=== PATIENT | female | born 1945 | race American Indian/Alaskan Native ===

== ENCOUNTER 2017-01-25 11:08 | Inpatient (IN) | payer MEDICARE, OTHER ==
[2017-01-25] MEDS ORDERED: Morphine 4 mg/ml ISec IVP STA (11:52)
[2017-01-25] MEDS ORDERED: Sodium Chloride 0.9% 1,000 ML IV STA (11:53)
[2017-01-25] MEDS ORDERED: Iohexol 240 (50 ml) ONE (12:07)
--- NOTE | 2017-01-25 12:11 | ED PDOC ---
Arrival/HPI - General Chief Complaint: Abdominal Pain Time Seen by Provider: 01/25/17 11:45 Historian: Patient - History of Present Illness Narrative History of Present Illness (Text): 01/25/17 11:46 A 71 year old female, whose past medical history includes hypertension, hyperlipidemia, GERD, and borderline diabetes, who presents to the emergency department complaining of generalized abdominal pain since yesterday. Patient notes associated decrease appetite. She says 2 days ago around 1700 she took a laxative to clean out our stomach and that evening she has non bloody, water diarrhea. She denies any nausea, vomiting, urinary symptoms, back pain, fever, chest pain, shortness of breath, cough or any other complaints at this time. PMD: Dr. Tran Time/Duration: 24 hours Symptom Onset: Sudden Symptom Course: Unchanged Quality: Other Activities at Onset: Rest Context: Home Associated Symptoms (Text): decrease appetite Past Medical History - Provider Review Nursing Documentation Reviewed: Yes - Infectious Disease Hx of Infectious Diseases: None - Cardiac Hx Hypertension: Yes - Psychiatric Hx Substance Use: No Family/Social History - Physician Review Nursing Documentation Reviewed: Yes Family/Social History: Unknown Family HX Smoking Status: Never Smoked Hx Alcohol Use: No Hx Substance Use: No Allergies/Home Meds Allergies/Adverse Reactions: Allergies No Known Allergies Allergy (Verified 01/25/17 11:32) Home Medications: Home Meds Medication Instructions Recorded Confirmed Olmesartan/Hydrochlorothiazide 1 tab PO DAILY 01/25/17 01/25/17 [Benicar Hct 40-12.5 mg Tablet] Omeprazole 20 mg PO BID 01/25/17 01/25/17 Potassium Chloride [Klor-Con 10] 10 meq PO DAILY 01/25/17 01/25/17 Simvastatin [Zocor] 20 mg PO DAILY 01/25/17 01/25/17 Review of Systems - Physician Review All systems were reviewed & negative as marked: Yes - Review of Systems Constitutional: absent: Fevers Respiratory: absent: SOB, Cough Cardiovascular: absent: Chest Pain Gastrointestinal: Abdominal Pain, Diarrhea. absent: Nausea, Vomiting Genitourinary Female: absent: Dysuria, Urine Output Changes Musculoskeletal: absent: Back Pain Neurological: absent: Headache, Dizziness Endocrine: absent: Polyuria, Polydipsia Physical Exam Vital Signs Reviewed: Yes Vital Signs Temp Pulse Resp BP Pulse Ox 01/25/17 13:04 89 18 148/79 98 01/25/17 11:26 98.3 F 97 H 18 150/84 96 Temperature: Afebrile Blood Pressure: Normal Pulse: Regular Respiratory Rate: Normal Appearance: Positive for: Well-Appearing, Non-Toxic, Comfortable Pain Distress: None Mental Status: Positive for: Alert and Oriented X 3 - Systems Exam Head: Present: Atraumatic, Normocephalic Pupils: Present: PERRL Conjunctiva: Present: Normal Mouth: Present: Moist Mucous Membranes Pharnyx: Present: Normal. No: ERYTHEMA, EXUDATE Neck: Present: Normal Range of Motion Respiratory/Chest: Present: Clear to Auscultation, Good Air Exchange. No: Respiratory Distress, Accessory Muscle Use Cardiovascular: Present: Regular Rate and Rhythm, Normal S1, S2. No: Murmurs Abdomen: Present: Tenderness (diffuse tenderness with palpation), Normal Bowel Sounds. No: Distention, Peritoneal Signs, Rebound, Guarding Back: Present: Normal Inspection Upper Extremity: Present: Normal Inspection. No: Cyanosis, Edema Lower Extremity: Present: Normal Inspection. No: Edema Neurological: Present: GCS=15, CN II-XII Intact, Speech Normal Skin: Present: Warm, Dry, Normal Color. No: Rashes Psychiatric: Present: Alert, Oriented x 3, Normal Insight, Normal Concentration Medical Decision Making ED Course and Treatment: 01/25/17 11:46 Impression: A 71 year old female with diffuse abdominal pain associated with decrease appetite. On physical examination the patient has tenderness with palpation diffusely. Differential Diagnosis included but are not limited to: gastritis vs. colitis Plan: -- EKG -- Abdomen/Pelvis CT -- Labs -- Urinalysis -- Morphine, Pepcid, Zofran and IV Fluids -- Reassess and disposition - Lab Interpretations I have reviewed the lab results: Yes - Medication Orders Current Medication Orders: Discontinued Medications Famotidine (Pepcid) 20 mg IVP STAT STA Stop: 01/25/17 11:53 Last Admin: 01/25/17 12:24 Dose: 20 MG IVP Administration Document 01/25/17 12:24 EQ (Rec: 01/25/17 12:24 EQ [facility] [id number][place] Charges for Administration # of IVP Administrations 1 Sodium Chloride (Sodium Chloride 0.9%) 1,000 mls @ 500 mls/hr IV .Q2H STA Stop: 01/25/17 13:52 Last Admin: 01/25/17 12:25 Dose: 500 MLS/HR eMAR Start Stop Document 01/25/17 12:25 EQ (Rec: 01/25/17 12:25 EQ [facility] [id number] Intravenous Solution Start Date 01/25/17 Start Time 12:25 Potassium Chloride (Potassium Chloride 10 Meq/100 Ml) 100 mls @ 100 mls/hr IVPB Q2H STA Stop: 01/25/17 13:45 Last Admin: 01/25/17 13:00 Dose: 100 MLS/HR eMAR Start Stop Document 01/25/17 13:00 EQ (Rec: 01/25/17 13:25 EQ [facility] [id number][place] Intravenous Solution Start Date 01/25/17 Start Time 13:00 Piperacillin Sod/Tazobactam Sod (Zosyn 3.375 In Ns 100ml) 100 mls @ 200 mls/hr IVPB STAT STA PRN Reason: Protocol Stop: 01/25/17 15:22 Iohexol (Omnipaque 240 (50 Ml)) Confirm Administered Dose 50 ml .ROUTE .STK-MED ONE Stop: 01/25/17 12:08 Morphine Sulfate (Morphine) 4 mg IVP STAT STA Stop: 01/25/17 11:53 Last Admin: 01/25/17 12:24 Dose: 4 MG MAR Pain Assessment Document 01/25/17 12:24 EQ (Rec: 01/25/17 12:25 EQ [facility] [id number][place] Pain Reassessment Is this a pain reassessment? No Sleep Is patient sleeping during reassessment? Yes IVP Administration Document 01/25/17 12:24 EQ (Rec: 01/25/17 12:25 EQ [facility] [id number][place] Charges for Administration # of IVP Administrations 1 Ondansetron HCl (Zofran Inj) 4 mg IVP STAT STA Stop: 01/25/17 11:53 Last Admin: 01/25/17 12:24 Dose: 4 MG IVP Administration Document 01/25/17 12:24 EQ (Rec: 01/25/17 12:24 EQ [facility] [id number][place] Charges for Administration # of IVP Administrations 1 ED OBSERVATION Date of observation admission: 01/25/17 Time of observation admission: 11:46 - Observation admission statement Patient is being placed in observation because:: abdominal pain - Goals of Observation Goals of observation are:: pain management and obtain series of abdominal examinations - Progress Note Progress Note: EKG: Ordered, reviewed, and independently interpreted the EKG. Rate : 95 BPM Rhythm : NSR Interpretation : normal axis, normal intervals, flattened T waves in lead V3-V6. Comparison : No previous EKG for comparison. 01/25/17 13:53 On reevaluation, the patient notes mild improvement in pain. Pain still present despite pain medication. Patient states she does not want any additional pain medication at this time. 01/25/17 14:50 Abdomen/Pelvis CT: Creator : Sharad Farley MD COMPARISON: None. FINDINGS: LOWER THORAX: Unremarkable. LIVER: Unremarkable. No gross lesion or ductal dilatation. GALLBLADDER AND BILE DUCTS: Unremarkable. PANCREAS: Unremarkable. No gross lesion or ductal dilatation. SPLEEN: Unremarkable. ADRENALS: Unremarkable. No mass. KIDNEYS AND URETERS: Unremarkable. No hydronephrosis. No solid mass. VASCULATURE: Unremarkable. No aortic aneurysm. BOWEL: There is diverticulitis of the sigmoid colon with an adjacent diverticular abscess extending inferiorly. This is best seen on coronal image 57 and axial images 128 through 140. The diverticular abscess contains gas but no fluid. This measures 2.5 cm in diameter and 3.8 cm in height. The finding is also visualize stones sagittal image 120. APPENDIX: Normal appendix. PERITONEUM: Unremarkable. No free fluid. No free air. LYMPH NODES: Unremarkable. No enlarged lymph nodes. BLADDER: Unremarkable. REPRODUCTIVE: Multiple calcified fibroids are seen with a lobulated contour of the uterus BONES: No acute fracture. OTHER FINDINGS: None. IMPRESSION: Diverticulitis of the sigmoid colon with adjacent diverticular abscess 01/25/17 15:[address] result with diverticular abscess - will admit for iv antibiotics and GI with possible surgical eval. Discussed with Dr. Jacome for admission. - Scribe Statement The provider has reviewed the documentation as recorded by the Ganesh Frye Provider Scribe Attestation: All medical record entries made by the Scribe were at my direction and personally dictated by me. I have reviewed the chart and agree that the record accurately reflects my personal performance of the history, physical exam, medical decision making, and the department course for this patient. I have also personally directed, reviewed, and agree with the discharge instructions and disposition. Disposition/Present on Arrival - Present on Arrival Any Indicators Present on Arrival: No History of DVT/PE: No History of Uncontrolled Diabetes: No Urinary Catheter: No History of Decub. Ulcer: No History Surgical Site Infection Following: None - Disposition Have Diagnosis and Disposition been Completed?: Yes Diagnosis: Abscess of sigmoid colon due to diverticulitis Disposition: HOSPITALIZED Disposition Time: 14:55 Patient Plan: Admission Patient Problems: Current Active Problems Problem Status Diagnosed Abscess of sigmoid colon due to diverticulitis Acute Condition: FAIR
[2017-01-25 12:28] LABS: ADD MANUAL DIFF? NO
[2017-01-25 12:36] LABS: BASO # 0.02 K/mm3 (0.0-2.0); BASO % 0.1 % (0.0-3.0); EOS % 0.1 % (1.5-5.0); GRAN % 80.9 % (50.0-68.0); HEMATOCRIT 37.3 % (36.0-48.0); LYMPH # 1.7 (1.2-3.4); MEAN CELL VOLUME 80.9 fL (80.0-105.0); MEAN CORPUSCULAR HEMOGLOBIN 26.9 pg (25.0-35.0); MEAN CORPUSCULAR HGB CONC 33.2 g/dl (31.0-37.0); MEAN PLATELET VOLUME 9.8 fl (7.0-11.0); MONO # 1.5 (0.1-0.6); MONO % 8.9 % (1.0-6.0); PLATELET COUNT 319 10^3/uL (120.0-450.0); RED CELL DISTRIBUTION WIDTH 17.4 % (11.5-14.5); WHITE BLOOD COUNT 17.3 10^3/ul (4.5-11.0)
[2017-01-25 12:43] LABS: ALB/GLOB RATIO 0.9 (1.1-1.8); ALKALINE PHOSPHATASE 92 U/L (38-133); ALT/SGPT 20 U/L (7-56); AMYLASE 89 U/L (35-125); AST/SGOT 24 U/L (15-39); BILIRUBIN,TOTAL 1.4 mg/dL (0.2-1.3); BLOOD UREA NITROGEN 11 mg/dL (7-21); CALCIUM 9.2 mg/dL (8.4-10.5); CARBON DIOXIDE 35 mmol/L (21-33); CHLORIDE 94 mmol/L (98-107); GFR AFRICAN-AMERICAN > 60; GLUCOSE,RANDOM 128 mg/dL (70-110); LIPASE 15 U/L (23-300); SODIUM 139 mmol/L (132-148); TOTAL PROTEIN 8.2 g/dL (5.8-8.3)
[2017-01-25] MEDS ORDERED: Potassium Chloride 10 mEq 100 ML IVPB STA (12:46)
[2017-01-25 12:53] LABS: TROPONIN I 0.02 ng/mL
[2017-01-25 12:56] LABS: INR 1.09 (0.93-1.08)
[2017-01-25] MEDS ORDERED: Iohexol 350 MG/100 ML VIAL ONE (13:19)
[2017-01-25 14:02] LABS: PH,URINE 6.5 (4.7-8.0); URINE BILIRUBIN NEGATIVE (NEGATIVE); URINE BLOOD MODERATE (NEGATIVE); URINE GLUCOSE (UA) NEGATIVE (NEGATIVE); URINE KETONE NEGATIVE (NEGATIVE); URINE LEUKOCYTE ESTERASE LARGE Leu/uL (NEGATIVE); URINE PROTEIN 30 mg/dL (<30 mg/dL); URINE UROBILINOGEN 0.2 E.U./dL (<1 E.U./dL)
[2017-01-25 14:04] LABS: URINE APPEARANCE SL CLOUDY (CLEAR); URINE COLOR YELLOW (YELLOW)
[2017-01-25 14:05] LABS: URINE BACTERIA FEW (NEG); URINE WBC TNTC /hpf (0-6)
[2017-01-25] MEDS ORDERED: cefTRIAXone 1 gm 100 ML IV STA (14:08)
--- NOTE | 2017-01-25 14:47 | CT ---
PROCEDURE: CT Abdomen and Pelvis with contrast HISTORY: diffuse abd pain COMPARISON: None. TECHNIQUE: Contrast dose: 100 cc of Omni 350 Radiation dose: Total exam DLP = 1232 mGy-cm. This CT exam was performed using one or more of the following dose reduction techniques: Automated exposure control, adjustment of the mA and/or kV according to patient size, and/or use of iterative reconstruction technique. FINDINGS: LOWER THORAX: Unremarkable. LIVER: Unremarkable. No gross lesion or ductal dilatation. GALLBLADDER AND BILE DUCTS: Unremarkable. PANCREAS: Unremarkable. No gross lesion or ductal dilatation. SPLEEN: Unremarkable. ADRENALS: Unremarkable. No mass. KIDNEYS AND URETERS: Unremarkable. No hydronephrosis. No solid mass. VASCULATURE: Unremarkable. No aortic aneurysm. BOWEL: There is diverticulitis of the sigmoid colon with an adjacent diverticular abscess extending inferiorly. This is best seen on coronal image 57 and axial images 128 through 140. The diverticular abscess contains gas but no fluid. This measures 2.5 cm in diameter and 3.8 cm in height. The finding is also visualize stones sagittal image 120. APPENDIX: Normal appendix. PERITONEUM: Unremarkable. No free fluid. No free air. LYMPH NODES: Unremarkable. No enlarged lymph nodes. BLADDER: Unremarkable. REPRODUCTIVE: Multiple calcified fibroids are seen with a lobulated contour of the uterus BONES: No acute fracture. OTHER FINDINGS: None. IMPRESSION: Diverticulitis of the sigmoid colon with adjacent diverticular abscess
[2017-01-25] MEDS ORDERED: Piperacillin/Tazobact 3.375 gm 100 ML IVPB STA (14:53)
--- NOTE | 2017-01-25 16:40 | CP.PCM.HP ---
<Susi Kaur - Last Filed: 01/26/17 09:03> History of Present Illness - History of Present Illness History of Present Illness: PGY-1 H&P 71 yo famale with PMH of HTN, hyperlipidemia, GERD, borderline DM, arthritis, h/ o hypokalemia presented with abdominal pain. Patient states that the pain started yesterday morning. She describes the pain as being constant and sore, 10 /10. The pain is located throght her lower abdomen, denies radiation. Pain is worst when she lays on her side. Patient states that she had non bloody watery diarrhea after taking laxative 3 days ago. She denies n/v. She denies eating any abnormal foods. She denies any sick contact, or recent travel. She states that 2 weeks ago she had cold like symptoms and got abx from her PMD. Patient states she occasionally take over the counter NSAIDs for pain relief from arthritis of her knees. Currently she does not report any cold like symptoms. She denies fever, chills, headaches, dizziness, wt loss/wt gain, chest pain, sob , urinary symptoms. Patient states that she has not had a colonoscopy or EGD. PMH: HTN, hyperlipidemia, GERD, borderline DM, arthritis, h/o hypokalemia PSH: denies, denies colonscopy or EGD Fam hx: denies social: former smoker quit 52 yo, social alcohol use, denies illicit drug use allergy: NKDA Present on Admission - Present on Admission Any Indicators Present on Admission: No Review of Systems - Constitutional Constitutional: absent: Chills, Fever, Headache, Weight Gain, Weight Loss - EENT Eyes: absent: Blurred Vision Nose/Mouth/Throat: absent: Nasal Congestion, Sore Throat - Cardiovascular Cardiovascular: absent: Chest Pain, Dyspnea - Respiratory Respiratory: absent: Cough, Dyspnea - Gastrointestinal Gastrointestinal: Abdominal Pain, Diarrhea. absent: Constipation, Nausea, Vomiting - Genitourinary Genitourinary: absent: Difficulty Urinating, Dysuria - Musculoskeletal Musculoskeletal: Arthralgias. absent: Back Pain, Muscle Weakness, Numbness, Tingling - Integumentary Integumentary: absent: Rash, Wounds - Neurological Neurological: absent: Dizziness, Numbness, Headaches, Tingling, Weakness - Hematologic/Lymphatic Hematologic: absent: Easy Bleeding, Easy Bruising Past Patient History - Infectious Disease Hx of Infectious Diseases: None - Past Social History Smoking Status: Never Smoked - CARDIAC Hx Hypertension: Yes - PSYCHIATRIC Hx Substance Use: No - SURGICAL HISTORY Hx Surgeries: No Meds Allergies/Adverse Reactions: Allergies Allergy/AdvReac Type Severity Reaction Status Date / Time No Known Allergies Allergy Verified 01/25/17 19:10 Physical Exam - Constitutional Appears: Well, No Acute Distress - Head Exam Head Exam: ATRAUMATIC, NORMOCEPHALIC - Eye Exam Eye Exam: Normal appearance - ENT Exam ENT Exam: Mucous Membranes Moist - Neck Exam Neck exam: Negative for: Lymphadenopathy - Respiratory Exam Respiratory Exam: Clear to Auscultation Bilateral, NORMAL BREATHING PATTERN. absent: Decreased Breath Sounds, Rales, Rhonchi, Wheezes, Respiratory Distress - Cardiovascular Exam Cardiovascular Exam: REGULAR RHYTHM. absent: Tachycardia, Diastolic murmur, Systolic Murmur - GI/Abdominal Exam GI & Abdominal Exam: Normal Bowel Sounds, Soft, Tenderness (diffuse). absent: Distended, Firm, Guarding - Extremities Exam Extremities exam: Positive for: normal inspection. Negative for: pedal edema - Neurological Exam Neurological exam: Alert, Oriented x3 - Skin Skin Exam: Dry, Intact, Normal Color, Warm Results - Vital Signs Recent Vital Signs: Last Vital Signs Temp 98.1 F 01/25/17 15:00 Pulse 79 01/25/17 15:00 Resp 18 01/25/17 15:00 BP 145/71 01/25/17 15:00 Pulse Ox 98 01/25/17 15:00 - Labs Result Diagrams: 01/25/17 12:15 01/25/17 12:15 Assessment & Plan - Assessment and Plan (Free Text) Assessment: 71 yo female with PMH of HTN, hyperlipidemia, GERD, borderline DM, arthritis, h/ o hypokalemia presented with diverticulitis with abscess. CT abd showed diverticulitis of sigmoid colon with diverticular abscess 2.5x 3.8 cm. Plan: 1. diverticulitis and diverticular abscess - CT abd showed diverticulitis of sigmoid colon with diverticular abscess 2.5x 3.8 cm - afebrile with leukocytosis of 17 - blood and urine cultures ordered - received zosyn in ED - start flagyl and rocephen - NPO - IVF NS @100 - consult GI - consult Surgery - consult IR for possible drainage 2. UTI - positive UA - start abx, flagyl and rocephan - urine cultures ordered 3. Hypokalemia - h/o hypokalemia - replaced in ED - repeat CBC in AM - supplement as needed 4. HTN - cont home medication benicar - cont to monitor 5. hyperlipidemia - cont home medication simvastatin ppx - DVT ppx lovenox - GI ppx protonix <Gilberto Jacome - Last Filed: 02/24/17 09:40> Results - Vital Signs Recent Vital Signs: Last Vital Signs Temp 97.7 F 01/28/17 16:38 Pulse 83 01/28/17 16:38 Resp 20 01/28/17 16:38 BP 117/53 L 01/28/17 16:38 Pulse Ox 98 01/28/17 16:38 - Labs Result Diagrams: 01/28/17 06:47 01/28/17 06:47 Attending/Attestation - Attestation I have personally seen and examined this patient.: Yes I have fully participated in the care of the patient.: Yes I have reviewed all pertinent clinical information: Yes Notes (Text): 02/24/17 09:40 Medical record note made by the resident after discussion with my direction and input after the patient was personally seen and examined by me. I have reviewed the chart and agree that the record accurately reflects by personal performance of the history, physical exam, data review, and medical decision-making, in the course for the patient. I have also personally directed the plan of care.
[2017-01-25] MEDS: Sodium Chloride 0.9% 1,000 ML IV SCH (17:41)
[2017-01-25] MEDS ORDERED: Non Formulary Medication (Omeprazole [Omeprazole] 20 MG) PO SCH (18:00)
[2017-01-25] MEDS: Morphine 2 mg/ml ISec IVP PRN (20:34)
[2017-01-25 22:32] VITALS: BMI 42.6
[2017-01-25] MEDS: Enoxaparin 30 mg Syringe SC SCH (23:07)
--- NOTE | 2017-01-26 05:38 | CP.PCM.CON ---
History of Present Illness - History of Present Illness History of Present Illness: Surgery for Dr. Barlow 71 yo famale with PMH of HTN, hyperlipidemia, GERD, DM, arthritis presented with abdominal pain. Patient states that the pain started 2 days ago.The pain is localized on her lower abdomen, denies radiation. Pain is worst when she lays on her side. Patient states that she had non bloody, watery diarrhea after taking laxative to cleans. She denies n/v. She denies eating any abnormal foods. She denies any sick contact, or recent travel. She states that 2 weeks ago she had cold like symptoms and got abx from her PMD. Patient states she occasionally take over the counter NSAIDs for pain relief from arthritis of her knees. Currently she does not report any cold like symptoms. She denies fever, chills, headaches, hematemesis, hematochezia, dizziness, wt loss/wt gain, chest pain, sob, urinary symptoms. Patient states that she has not had a colonoscopy or EGD. Pt reports this is the first time having these symptoms. PMH: HTN, hyperlipidemia, GERD, borderline DM, arthritis, h/o hypokalemia PSH: denies, denies colonscopy or EGD Fam hx: denies social: former smoker quit 52 yo, social alcohol use, denies illicit drug use allergy: NKDA Review of Systems - Review of Systems Review of Systems: See HPI Past Patient History - Infectious Disease Hx of Infectious Diseases: None - Past Social History Smoking Status: Former Smoker - CARDIAC Hx Cardiac Disorders: Yes Hx Hypercholesterolemia: Yes Hx Hypertension: Yes - PULMONARY Hx Respiratory Disorders: Yes (SMOKED PPD QUIT 50 YRS AGO) - NEUROLOGICAL Hx Neurological Disorder: No - HEENT Hx HEENT Problems: No - RENAL Hx Chronic Kidney Disease: No - ENDOCRINE/METABOLIC Hx Endocrine Disorders: No - HEMATOLOGICAL/ONCOLOGICAL Hx Blood Disorders: No - INTEGUMENTARY Hx Dermatological Problems: No - MUSCULOSKELETAL/RHEUMATOLOGICAL Hx Musculoskeletal Disorders: No Hx Falls: No - GASTROINTESTINAL Hx Gastrointestinal Disorders: Yes Hx Diverticulitis: Yes Hx Gastroesophageal Reflux: Yes Other/Comment: DIVERTICULITIS WITH DIVERTICULAR ABSCESS OF SIBMOID COLON -03-08 - GENITOURINARY/GYNECOLOGICAL Hx Genitourinary Disorders: No - PSYCHIATRIC Hx Psychophysiologic Disorder: No Hx Substance Use: No - SURGICAL HISTORY Hx Surgeries: No Meds Allergies/Adverse Reactions: Allergies Allergy/AdvReac Type Severity Reaction Status Date / Time No Known Allergies Allergy Verified 01/25/17 19:10 - Medications Medications: Current Medications Atorvastatin Calcium (Lipitor) 10 mg PO DIN NABILA Enoxaparin Sodium (Lovenox) 30 mg SC 1000,2200 NABILA PRN Reason: Protocol Last Admin: 01/25/17 23:07 Dose: 30 mg Hydrochlorothiazide (Microzide) 12.5 mg PO DAILY [facility] Sodium Chloride (Sodium Chloride 0.9%) 1,000 mls @ 100 mls/hr IV .Q10H [facility] Last Admin: 01/25/17 17:41 Dose: 100 mls/hr Ceftriaxone Sodium (Rocephin 1 Gram Ivpb) 100 mls @ 100 mls/hr IVPB DAILY [facility] PRN Reason: Protocol Metronidazole (Flagyl) 100 mls @ 100 mls/hr IVPB Q8 [facility] PRN Reason: Protocol Losartan Potassium (Cozaar) 100 mg PO DAILY [facility] Morphine Sulfate (Morphine) 2 mg IVP Q6H PRN PRN Reason: Pain, moderate (4-7) Last Admin: 01/25/17 20:34 Dose: 2 mg Pantoprazole Sodium (Protonix Ec Tab) 40 mg PO ACBD [facility] Potassium Chloride (Klor-Con 10) 10 meq PO DAILY [facility] Physical Exam - Constitutional Appears: No Acute Distress - Head Exam Head Exam: ATRAUMATIC, NORMAL INSPECTION, NORMOCEPHALIC - Eye Exam Eye Exam: EOMI, Normal appearance, PERRL Pupil Exam: NORMAL ACCOMODATION, PERRL - ENT Exam ENT Exam: Mucous Membranes Moist, Normal Exam - Neck Exam Neck exam: Positive for: Normal Inspection - Respiratory Exam Respiratory Exam: Clear to Auscultation Bilateral, NORMAL BREATHING PATTERN. absent: Accessory Muscle Use, Respiratory Distress - Cardiovascular Exam Cardiovascular Exam: REGULAR RHYTHM, +S1, +S2 - GI/Abdominal Exam GI & Abdominal Exam: Normal Bowel Sounds, Soft, Tenderness. absent: Distended, Firm, Guarding Additional comments: Low abd - Extremities Exam Extremities exam: Positive for: normal inspection - Back Exam Back exam: NORMAL INSPECTION - Neurological Exam Neurological exam: Alert, CN II-XII Intact, Normal Gait, Oriented x3, Reflexes Normal - Psychiatric Exam Psychiatric exam: Normal Affect, Normal Mood - Skin Skin Exam: Dry, Intact, Normal Color, Warm Results - Vital Signs Recent Vital Signs: Last Vital Signs Temp 98.1 F 01/25/17 22:16 Pulse 75 01/25/17 22:16 Resp 98 H 01/25/17 22:16 BP 143/69 01/25/17 22:16 Pulse Ox 98 01/25/17 16:37 - Labs Result Diagrams: 01/25/17 12:15 01/25/17 12:15 Assessment & Plan - Assessment and Plan (Free Text) Assessment: Diverticular absccess, sigmoid divertitulitis -ABX -IVF -NPO -Serial abd exam -Pain control Will DW Dr. Barlow
[2017-01-26] MEDS: metroNIDAZOLE IV 500 mg/100 ml 100 ML IVPB SCH ×3 (06:20→22:42)
[2017-01-26 07:26] LABS: ADD MANUAL DIFF? NO
[2017-01-26] MEDS ORDERED: Pantoprazole 40 mg EC Tab PO SCH (07:30)
[2017-01-26 07:31] LABS: BASO # 0.02 K/mm3 (0.0-2.0); BASO % 0.1 % (0.0-3.0); EOS # 0.2 (0.0-0.7); EOS % 1.6 % (1.5-5.0); GRAN # 10.39 (1.4-6.5); GRAN % 77.1 % (50.0-68.0); HEMATOCRIT 31.8 % (36.0-48.0); LYMPH % 14.5 % (22.0-35.0); MEAN CELL VOLUME 81.5 fL (80.0-105.0); MEAN CORPUSCULAR HEMOGLOBIN 26.9 pg (25.0-35.0); MEAN PLATELET VOLUME 9.3 fl (7.0-11.0); MONO # 0.9 (0.1-0.6); MONO % 6.7 % (1.0-6.0); PLATELET COUNT 249 10^3/uL (120.0-450.0); RED CELL DISTRIBUTION WIDTH 17.6 % (11.5-14.5); WHITE BLOOD COUNT 13.5 10^3/ul (4.5-11.0)
--- NOTE | 2017-01-26 08:06 | CP.PCM.CON ---
<Cheri Quiroz - Last Filed: 01/26/17 08:56> History of Present Illness - History of Present Illness History of Present Illness: Gastroenterology Fellow/PGY4 Consult Note 71 year old female with history of Hypertension, Hyperlipidemia, borderline Diabetes, hypokalemia and arthritis presenting with abdominal pain. Patient describes normal dietary habits of daily junk food leading to regimen of taking Epson salt as a laxative every three months since she was a child. Normal bowel habit of once to twice a day. She notes taking Epson salt on Monday night around 730Pm followed by at least five episodes of diarrhea till 430AM on Monday. She describes onset of constant, sharp bilateral lower abdomen pain on Monday morning that progressively worsened until Monday morning, pain scale 8-10/10. She denies fever, chills, sweats, hematochezia, melena, weight loss, dysuria, hematuria, polyuria, constipation, weight loss, nausea, vomiting , heartburn, indigestion, or acid reflux. No prior EGD or colonoscopy. Family-denies colon cancer Social- remote use of 1 pack of cigarettes at 21 years of age with immediate cessation after loss of , social alcohol use, denies illicit drug use Surgery- none Review of Systems - Review of Systems Review of Systems: A 12-point review of systems negative except for as above Past Patient History - Infectious Disease Hx of Infectious Diseases: None - Past Social History Smoking Status: Former Smoker - CARDIAC Hx Cardiac Disorders: Yes Hx Hypercholesterolemia: Yes Hx Hypertension: Yes - PULMONARY Hx Respiratory Disorders: Yes (SMOKED PPD QUIT 50 YRS AGO) - NEUROLOGICAL Hx Neurological Disorder: No - HEENT Hx HEENT Problems: No - RENAL Hx Chronic Kidney Disease: No - ENDOCRINE/METABOLIC Hx Endocrine Disorders: No - HEMATOLOGICAL/ONCOLOGICAL Hx Blood Disorders: No - INTEGUMENTARY Hx Dermatological Problems: No - MUSCULOSKELETAL/RHEUMATOLOGICAL Hx Musculoskeletal Disorders: No Hx Falls: No - GASTROINTESTINAL Hx Gastrointestinal Disorders: Yes Hx Diverticulitis: Yes Hx Gastroesophageal Reflux: Yes Other/Comment: DIVERTICULITIS WITH DIVERTICULAR ABSCESS OF SIBMOID COLON 01-25-17 - GENITOURINARY/GYNECOLOGICAL Hx Genitourinary Disorders: No - PSYCHIATRIC Hx Psychophysiologic Disorder: No Hx Substance Use: No - SURGICAL HISTORY Hx Surgeries: No Meds Allergies/Adverse Reactions: Allergies Allergy/AdvReac Type Severity Reaction Status Date / Time No Known Allergies Allergy Verified 01/25/17 19:10 - Medications Medications: Current Medications Atorvastatin Calcium (Lipitor) 10 mg PO DIN [facility] Enoxaparin Sodium (Lovenox) 30 mg SC 1000,2200 [facility] PRN Reason: Protocol Last Admin: 01/25/17 23:07 Dose: 30 mg Hydrochlorothiazide (Microzide) 12.5 mg PO DAILY [facility] Sodium Chloride (Sodium Chloride 0.9%) 1,000 mls @ 100 mls/hr IV .Q10H [facility] Last Admin: 01/25/17 17:41 Dose: 100 mls/hr Ceftriaxone Sodium (Rocephin 1 Gram Ivpb) 100 mls @ 100 mls/hr IVPB DAILY [facility] PRN Reason: Protocol Metronidazole (Flagyl) 100 mls @ 100 mls/hr IVPB Q8 [facility] PRN Reason: Protocol Last Admin: 01/26/17 06:20 Dose: 100 mls/hr Losartan Potassium (Cozaar) 100 mg PO DAILY [facility] Morphine Sulfate (Morphine) 2 mg IVP Q6H PRN PRN Reason: Pain, moderate (4-7) Last Admin: 01/25/17 20:34 Dose: 2 mg Pantoprazole Sodium (Protonix Ec Tab) 40 mg PO ACBD [facility] Potassium Chloride (Klor-Con 10) 10 meq PO DAILY [facility] Physical Exam - Constitutional Appears: Non-toxic, No Acute Distress - Head Exam Head Exam: ATRAUMATIC, NORMOCEPHALIC - Eye Exam Eye Exam: EOMI, PERRL Pupil Exam: PERRL. absent: Miosis, Mydriatic - ENT Exam ENT Exam: Mucous Membranes Moist, Normal Oropharynx - Neck Exam Neck exam: Positive for: Full Rom, Normal Inspection - Respiratory Exam Respiratory Exam: Clear to Auscultation Bilateral. absent: Rales, Rhonchi, Wheezes - Cardiovascular Exam Cardiovascular Exam: RRR, +S1, +S2. absent: Gallop, Rubs - GI/Abdominal Exam GI & Abdominal Exam: Normal Bowel Sounds, Soft, Tenderness. absent: Distended, Firm, Guarding, Organomegaly, Rebound, Rigid Additional comments: B/L LQ and suprapubic tenderness - Extremities Exam Extremities exam: Positive for: full ROM. Negative for: pedal edema - Neurological Exam Neurological exam: Alert - Psychiatric Exam Psychiatric exam: Normal Affect, Normal Mood - Skin Skin Exam: Dry, Intact, Normal Color, Warm Results - Vital Signs Recent Vital Signs: Last Vital Signs Temp 98.1 F 01/25/17 22:16 Pulse 75 01/25/17 22:16 Resp 98 H 01/25/17 22:16 BP 143/69 01/25/17 22:16 Pulse Ox 98 01/25/17 16:37 - Labs Result Diagrams: 01/26/17 07:00 01/26/17 07:00 Labs: Laboratory Results - last 24 hr 01/26/17 07:00 WBC 13.5 H D RBC 3.90 Hgb 10.5 L Hct 31.8 L MCV 81.5 MCH 26.9 MCHC 33.0 RDW 17.6 H Plt Count 249 MPV 9.3 Gran % 77.1 H Lymph % (Auto) 14.5 L [place] % (Auto) 6.7 H Eos % (Auto) 1.6 Baso % (Auto) 0.1 Gran # 10.39 H Lymph # 2.0 [place] # 0.9 H Eos # 0.2 Baso # 0.02 Assessment & Plan - Assessment and Plan (Free Text) Assessment: 71 year old female with history of Hypertension, Hyperlipidemia, borderline Diabetes, hypokalemia and arthritis presenting with abdominal pain. CT A/P showing sigmoid diverticulitis with adjacent 2.5x3.8cm abscess extending inferiorly with gas, no fluid. No prior EGD or colonoscopy. Plan: >complicated diverticulitis, UTI >continue ceftriaxone, flagyl >IR evaluation to assess if abscess is amenable to drainage >surgery managing- appreciate recommendations >supportive care: IVFs, pain control >potassium supplementation >further recommendations based on clinical course >will require follow up for colonoscopy after resolution of complicated diverticulitis <Mariah Sam - Last Filed: 01/26/17 09:38> Meds - Medications Medications: Current Medications Atorvastatin Calcium (Lipitor) 10 mg PO DIN [facility] Enoxaparin Sodium (Lovenox) 30 mg SC 1000,2200 [facility] PRN Reason: Protocol Last Admin: 01/25/17 23:07 Dose: 30 mg Hydrochlorothiazide (Microzide) 12.5 mg PO DAILY [facility] Sodium Chloride (Sodium Chloride 0.9%) 1,000 mls @ 100 mls/hr IV .Q10H [facility] Last Admin: 01/25/17 17:41 Dose: 100 mls/hr Ceftriaxone Sodium (Rocephin 1 Gram Ivpb) 100 mls @ 100 mls/hr IVPB DAILY [facility] PRN Reason: Protocol Metronidazole (Flagyl) 100 mls @ 100 mls/hr IVPB Q8 [facility] PRN Reason: Protocol Last Admin: 01/26/17 06:20 Dose: 100 mls/hr Potassium Chloride (Potassium Chloride 20 Meq/100 Ml) 100 mls @ 50 mls/hr IVPB Q2H [facility] Stop: 01/26/17 12:44 Last Admin: 01/26/17 09:10 Dose: 50 mls/hr Losartan Potassium (Cozaar) 100 mg PO DAILY [facility] Morphine Sulfate (Morphine) 2 mg IVP Q6H PRN PRN Reason: Pain, moderate (4-7) Last Admin: 01/25/17 20:34 Dose: 2 mg Pantoprazole Sodium (Protonix Inj) 40 mg IVP Q12 [facility] Potassium Chloride (Klor-Con 10) 10 meq PO DAILY [facility] Results - Vital Signs Recent Vital Signs: Last Vital Signs Temp 99.1 F 01/26/17 07:30 Pulse 84 01/26/17 07:30 Resp 20 01/26/17 07:30 BP 119/58 L 01/26/17 07:30 Pulse Ox 94 L 01/26/17 07:30 - Labs Result Diagrams: 01/26/17 07:00 01/26/17 07:00 Labs: Laboratory Results - last 24 hr 01/26/17 01/26/17 07:00 08:00 WBC 13.5 H D RBC 3.90 Hgb 10.5 L Hct 31.8 L MCV 81.5 MCH 26.9 MCHC 33.0 RDW 17.6 H Plt Count 249 MPV 9.3 Gran % 77.1 H Lymph % (Auto) 14.5 L [place] % (Auto) 6.7 H Eos % (Auto) 1.6 Baso % (Auto) 0.1 Gran # 10.39 H Lymph # 2.0 [place] # 0.9 H Eos # 0.2 Baso # 0.02 Sodium 139 Potassium 2.7 L* Chloride 99 Carbon Dioxide 32 Anion Gap 11 BUN 10 Creatinine 0.7 Est GFR ( Amer) > 60 Est GFR (Non-Af Amer) > 60 Random Glucose 95 Calcium 8.4 Magnesium 2.3 H Total Bilirubin 0.8 AST 33 ALT 24 Alkaline Phosphatase 99 Total Protein 6.6 Albumin 3.2 Globulin 3.5 Albumin/Globulin Ratio 0.9 L Attending/Attestation - Attestation I have personally seen and examined this patient.: Yes I have fully participated in the care of the patient.: Yes I have reviewed all pertinent clinical information: Yes Notes (Text): Patient seen and examined with GI fellow. Agree with her note as documented above with the following additions/exceptions. This is a 71 year old female with h/o HTN, HL, chronic hypokalemia who is admitted with severe abdominal pain. She notes sudden onset abdominal pain shortly after taking laxative which she does periodically to cleanse her colon. No associated fever/chills, nausea or vomiting. No GI bleeding. She has never had prior colonoscopy. No known FH of GI malignancy. She had CT scan which showed sigmoid diverticulitis with associated abscess. She reports slight improvement in abdominal pain today , although still is tender on examination. Would continue supportive management , NPO, IVF hydration. Continue IV antibiotic therapy. Surgery/IR consulted. She would ultimately benefit from colonoscopy in 6-8 weeks electively. 01/26/17 09:33
[2017-01-26 08:09] LABS: ALB/GLOB RATIO 0.9 (1.1-1.8); ALKALINE PHOSPHATASE 99 U/L (38-133); ALT/SGPT 24 U/L (7-56); AST/SGOT 33 U/L (15-39); BILIRUBIN,TOTAL 0.8 mg/dL (0.2-1.3); BLOOD UREA NITROGEN 10 mg/dL (7-21); CALCIUM 8.4 mg/dL (8.4-10.5); CARBON DIOXIDE 32 mmol/L (21-33); CHLORIDE 99 mmol/L (98-107); GFR AFRICAN-AMERICAN > 60; GLUCOSE,RANDOM 95 mg/dL (70-110); SODIUM 139 mmol/L (132-148); TOTAL PROTEIN 6.6 g/dL (5.8-8.3)
[2017-01-26 08:18] LABS: POTASSIUM 2.7 mmol/L (3.6-5.0)
--- NOTE | 2017-01-26 09:09 | CP.PCM.PN ---
<Susi Kaur - Last Filed: 01/26/17 12:36> Subjective - Date & Time of Evaluation Date of Evaluation: 01/26/17 Time of Evaluation: 09:05 - Subjective Subjective: PGY-1 Medicine progress note Patient was seen and examined at bedside. No acute distress. Nurse states that overnight patient was given 1 dose of pain medication, no other events overnight. Patient states her abdominal pain is improved, 5/10. She reports 1 small BM that was more formed then previous movements. She denies fevers, chills, headache, n/v, chest pain. Patients SaO2 was low at 94 and she was placed on nasal cannula, patient does not report sob. Objective - Vital Signs/Intake and Output Vital Signs (last 24 hours): Temp Pulse Resp BP Pulse Ox 99.1 F 84 20 119/58 L 94 L 01/26/17 07:30 01/26/17 07:30 01/26/17 07:30 01/26/17 07:30 01/26/17 07:30 Intake and Output: 01/26/17 01/26/17 06:59 18:59 Intake Total 0 Balance 0 - Medications Medications: Current Medications Atorvastatin Calcium (Lipitor) 10 mg PO DIN [facility] Enoxaparin Sodium (Lovenox) 30 mg SC 1000,2200 [facility] PRN Reason: Protocol Last Admin: 01/25/17 23:07 Dose: 30 mg Hydrochlorothiazide (Microzide) 12.5 mg PO DAILY [facility] Sodium Chloride (Sodium Chloride 0.9%) 1,000 mls @ 100 mls/hr IV .Q10H [facility] Last Admin: 01/25/17 17:41 Dose: 100 mls/hr Ceftriaxone Sodium (Rocephin 1 Gram Ivpb) 100 mls @ 100 mls/hr IVPB DAILY [facility] PRN Reason: Protocol Metronidazole (Flagyl) 100 mls @ 100 mls/hr IVPB Q8 [facility] PRN Reason: Protocol Last Admin: 01/26/17 06:20 Dose: 100 mls/hr Potassium Chloride (Potassium Chloride 20 Meq/100 Ml) 100 mls @ 50 mls/hr IVPB Q2H [facility] Stop: 01/26/17 12:44 Losartan Potassium (Cozaar) 100 mg PO DAILY [facility] Morphine Sulfate (Morphine) 2 mg IVP Q6H PRN PRN Reason: Pain, moderate (4-7) Last Admin: 01/25/17 20:34 Dose: 2 mg Pantoprazole Sodium (Protonix Inj) 40 mg IVP Q12 [facility] Potassium Chloride (Klor-Con 10) 10 meq PO DAILY [facility] - Labs Labs: 01/26/17 07:00 01/26/17 07:00 PT 11.8 Seconds (9.9-11.8) 01/25/17 12:15 INR 1.09 (0.93-1.08) H 01/25/17 12:15 APTT 31.0 Seconds (23.7-30.8) H 01/25/17 12:15 - Constitutional Appears: Well, No Acute Distress - Head Exam Head Exam: ATRAUMATIC, NORMOCEPHALIC - Eye Exam Eye Exam: Normal appearance - ENT Exam ENT Exam: Mucous Membranes Moist - Respiratory Exam Respiratory Exam: Clear to Ausculation Bilateral, NORMAL BREATHING PATTERN. absent: Decreased Breath Sounds, Rhonchi, Wheezes, Respiratory Distress - Cardiovascular Exam Cardiovascular Exam: REGULAR RHYTHM. absent: Tachycardia, Diastolic murmur, Murmur - GI/Abdominal Exam GI & Abdominal Exam: Soft, Tenderness (low quadrants ), Normal Bowel Sounds. absent: Distended, Firm, Guarding - Extremities Exam Extremities Exam: Normal Inspection. absent: Pedal Edema - Neurological Exam Neurological Exam: Alert, Awake, Oriented x3 - Skin Skin Exam: Dry, Intact, Normal Color, Warm Assessment and Plan - Assessment and Plan (Free Text) Assessment: 71 yo female with PMH of HTN, hyperlipidemia, GERD, borderline DM, arthritis, h/ o hypokalemia presented with diverticulitis with abscess, hypokalemia. CT abd showed diverticulitis of sigmoid colon with diverticular abscess 2.5x 3.8 cm. Plan: 1. diverticulitis and diverticular abscess - CT abd showed diverticulitis of sigmoid colon with diverticular abscess 2.5x 3.8 cm - afebrile with improved leukocytosis - blood and urine cultures pending - received zosyn in ED - continue flagyl and rocephen - NPO - IVF NS @100 - pain control - GI following - Surgery follow, recommend IR drainage - consult IR for possible drainage 2. UTI - positive UA - cont flagyl and rocephan - urine cultures ordered 3. Hypokalemia - h/o hypokalemia - AM labs show decreased k - supplemented with k- rider - cont to monitor 4. HTN - cont home medication benicar - cont to monitor 5. hyperlipidemia - cont home medication simvastatin ppx - DVT ppx lovenox - GI ppx protonix <Emil Tran - Last Filed: 02/01/17 08:57> Objective - Vital Signs/Intake and Output Vital Signs (last 24 hours): Temp Pulse Resp BP Pulse Ox 97.7 F 83 20 117/53 L 98 01/28/17 16:38 01/28/17 16:38 01/28/17 16:38 01/28/17 16:38 01/28/17 16:38 - Labs Labs: 01/28/17 06:47 01/28/17 06:47 PT 11.8 Seconds (9.9-11.8) 01/25/17 12:15 INR 1.09 (0.93-1.08) H 01/25/17 12:15 APTT 31.0 Seconds (23.7-30.8) H 01/25/17 12:15 Attending/Attestation - Attestation I have personally seen and examined this patient.: Yes I have fully participated in the care of the patient.: Yes I have reviewed all pertinent clinical information, including history, physical exam and plan: Yes Notes (Text): 02/01/17 08:57 Medical record note made by the resident after discussion with my direction and input after the patient was personally seen and examined by me. I have reviewed the chart and agree that the record accurately reflects my own personal history, physical, data review and plan.
[2017-01-26] MEDS: Potassium Chloride 20 mEq 100 ML IVPB SCH ×2 (09:10→14:40)
[2017-01-26] MEDS: Enoxaparin 30 mg Syringe SC SCH ×2 (09:58→22:43)
[2017-01-26] MEDS ORDERED: Non Formulary Medication (Olmesartan/Hydrochlorothiazide [Benicar Hct 40-12.5 Mg Tablet] 1 PO SCH (10:00)
[2017-01-26] MEDS: cefTRIAXone 1 gm 100 ML IVPB SCH (10:00)
[2017-01-26] MEDS: Potassium Chloride 10 mEq ER Tab PO SCH (10:10)
--- NOTE | 2017-01-26 16:46 | PN ---
DATE: 01/26/2017 I was asked to review the abdominal/pelvic CT scan on the patient. Clinically, she is a 71-year-old female who presents with sigmoid diverticulitis. The CT scan was done on 01/25/2017. This reveals diverticulitis with a phlegmon adjacent to the sigmoid colon. It is primarily phlegmon with a small pocket of air and a minimal amount of fluid. I do not believe there is significant drainable fluid present at this time. I would recommend treating initially with IV antibiotics. A repeat CT scan can be performed in 3-5 days if clinically indicated. If more fluid develops or the area coalesces into a drainable abscess, CT drainage can be performed at that time. Avelino Mckeon MD cc: [id number] TT: 01/26/2017 16:45:31 Confirmation # [id number] Dictation # [id number] cedric LAY
--- NOTE | 2017-01-26 18:08 | CARD ---
APPROVED REPORT EKG Measurement Heart [id number] <Conclusion> Normal sinus rhythm Minimal voltage criteria for LVH, may be normal variant Possible Anterolateral infarct, age undetermined Abnormal ECG
[2017-01-26] MEDS: Morphine 2 mg/ml ISec IVP PRN (23:10)
[2017-01-27] MEDS: metroNIDAZOLE IV 500 mg/100 ml 100 ML IVPB SCH ×3 (06:35→21:07)
--- NOTE | 2017-01-27 06:59 | CP.PCM.PN ---
<Cheri Quiroz - Last Filed: 01/27/17 09:36> Subjective - Date & Time of Evaluation Date of Evaluation: 01/27/17 Time of Evaluation: 06:55 - Subjective Subjective: Gastroenterology Fellow/PGY4 Progress Note Patient continues to have bilateral lower abdomen pain. Notes two soft stools overnight. States she is hungry. A 12-point review of systems negative except for as above. Objective - Vital Signs/Intake and Output Vital Signs (last 24 hours): Temp Pulse Resp BP Pulse Ox 98.3 F 85 16 132/55 L 94 L 01/26/17 16:00 01/26/17 16:00 01/26/17 16:00 01/26/17 16:00 01/26/17 16:00 - Medications Medications: Current Medications Atorvastatin Calcium (Lipitor) 10 mg PO DIN [facility] Last Admin: 01/26/17 17:37 Dose: 10 mg Enoxaparin Sodium (Lovenox) 30 mg SC 1000,2200 [facility] PRN Reason: Protocol Last Admin: 01/26/17 22:43 Dose: 30 mg Hydrochlorothiazide (Microzide) 12.5 mg PO DAILY [facility] Last Admin: 01/26/17 09:59 Dose: Not Given Sodium Chloride (Sodium Chloride 0.9%) 1,000 mls @ 100 mls/hr IV .Q10H [facility] Last Admin: 01/25/17 17:41 Dose: 100 mls/hr Ceftriaxone Sodium (Rocephin 1 Gram Ivpb) 100 mls @ 100 mls/hr IVPB DAILY [facility] PRN Reason: Protocol Last Admin: 01/26/17 10:00 Dose: 100 mls/hr Metronidazole (Flagyl) 100 mls @ 100 mls/hr IVPB Q8 [facility] PRN Reason: Protocol Last Admin: 01/27/17 06:35 Dose: 100 mls/hr Losartan Potassium (Cozaar) 100 mg PO DAILY [facility] Last Admin: 01/26/17 09:58 Dose: 100 mg Morphine Sulfate (Morphine) 2 mg IVP Q6H PRN PRN Reason: Pain, moderate (4-7) Last Admin: 01/26/17 23:10 Dose: 2 mg Pantoprazole Sodium (Protonix Inj) 40 mg IVP Q12 [facility] Last Admin: 01/26/17 22:43 Dose: 40 mg Potassium Chloride (Klor-Con 10) 10 meq PO DAILY [facility] Last Admin: 01/26/17 10:10 Dose: Not Given - Labs Labs: 01/26/17 07:00 01/26/17 07:00 PT 11.8 Seconds (9.9-11.8) 01/25/17 12:15 INR 1.09 (0.93-1.08) H 01/25/17 12:15 APTT 31.0 Seconds (23.7-30.8) H 01/25/17 12:15 - Constitutional Appears: Non-toxic, No Acute Distress - Head Exam Head Exam: ATRAUMATIC, NORMOCEPHALIC - Eye Exam Eye Exam: EOMI, PERRL Pupil Exam: PERRL. absent: Miosis, Mydriatic - ENT Exam ENT Exam: Mucous Membranes Moist, Normal Oropharynx - Neck Exam Neck Exam: Full ROM, Normal Inspection - Respiratory Exam Respiratory Exam: Clear to Ausculation Bilateral. absent: Rales, Rhonchi, Wheezes - Cardiovascular Exam Cardiovascular Exam: RRR, +S1, +S2. absent: Gallop, Rubs - GI/Abdominal Exam GI & Abdominal Exam: Soft, Tenderness, Normal Bowel Sounds. absent: Distended, Firm, Guarding, Rigid, Organomegaly, Rebound Additional comments: B/L LQ and suprapubic tenderness - Extremities Exam Extremities Exam: Full ROM. absent: Pedal Edema - Neurological Exam Neurological Exam: Alert, Awake - Psychiatric Exam Psychiatric exam: Normal Affect, Normal Mood - Skin Skin Exam: Dry, Intact, Normal Color, Warm Assessment and Plan - Assessment and Plan (Free Text) Assessment: 71 year old female with history of Hypertension, Hyperlipidemia, borderline Diabetes, hypokalemia and arthritis presenting with abdominal pain. CT A/P showing sigmoid diverticulitis with adjacent 2.5x3.8cm abscess extending inferiorly with gas, no fluid noted. No prior EGD or colonoscopy. Plan: >complicated sigmoid diverticulitis with abscess, UTI >pending Cdiff, stool culture >continue ceftriaxone, flagyl >supportive care: IVFs, pain control >advance to clear liquids, advance as tolerated >IR recommendation- no drainable fluid, consider repeat CT in 3-5 days if clinically indicated to re-assess >surgery managing- appreciate recommendations >will require future colonoscopy in 6-8 weeks after resolution of complicated diverticulitis <Pedro Sellers - Last Filed: 01/27/17 13:00> Objective - Vital Signs/Intake and Output Vital Signs (last 24 hours): Temp Pulse Resp BP Pulse Ox 98.8 F 77 18 112/43 L 99 01/27/17 07:39 01/27/17 07:39 01/27/17 07:39 01/27/17 07:39 01/27/17 07:39 - Medications Medications: Current Medications Atorvastatin Calcium (Lipitor) 10 mg PO DIN [facility] Last Admin: 01/26/17 17:37 Dose: 10 mg Enoxaparin Sodium (Lovenox) 30 mg SC 1000,2200 [facility] PRN Reason: Protocol Last Admin: 01/27/17 09:58 Dose: 30 mg Hydrochlorothiazide (Microzide) 12.5 mg PO DAILY [facility] Last Admin: 01/27/17 09:58 Dose: Not Given Sodium Chloride (Sodium Chloride 0.9%) 1,000 mls @ 100 mls/hr IV .Q10H [facility] Last Admin: 01/27/17 10:00 Dose: 100 mls/hr Ceftriaxone Sodium (Rocephin 1 Gram Ivpb) 100 mls @ 100 mls/hr IVPB DAILY [facility] PRN Reason: Protocol Last Admin: 01/27/17 09:57 Dose: 100 mls/hr Metronidazole (Flagyl) 100 mls @ 100 mls/hr IVPB Q8 [facility] PRN Reason: Protocol Last Admin: 01/27/17 06:35 Dose: 100 mls/hr Losartan Potassium (Cozaar) 100 mg PO DAILY [facility] Last Admin: 01/27/17 09:58 Dose: 100 mg Morphine Sulfate (Morphine) 2 mg IVP Q6H PRN PRN Reason: Pain, moderate (4-7) Last Admin: 01/26/17 23:10 Dose: 2 mg Pantoprazole Sodium (Protonix Inj) 40 mg IVP Q12 [facility] Last Admin: 01/27/17 09:58 Dose: 40 mg Potassium Chloride (Klor-Con 10) 10 meq PO DAILY [facility] Last Admin: 01/27/17 09:57 Dose: 10 meq - Labs Labs: 01/27/17 06:30 01/27/17 06:30 PT 11.8 Seconds (9.9-11.8) 01/25/17 12:15 INR 1.09 (0.93-1.08) H 01/25/17 12:15 APTT 31.0 Seconds (23.7-30.8) H 01/25/17 12:15 Attending/Attestation - Attestation I have personally seen and examined this patient.: Yes I have fully participated in the care of the patient.: Yes I have reviewed all pertinent clinical information, including history, physical exam and plan: Yes Notes (Text): 01/27/17 12:55 I have seen and examined patient with GI fellow. No acute events overnight, patient is seen sitting at bedside eating breakfast liquid tray, appears quite comfortable. She still endorses mild LLQ abdominal pain, though much improved compared to prior day. She had two soft bowel movements overnight and denies nausea, vomiting, fever/chills. HTN / hyperlipidemia Arthritis Abdominal pain, sigmoid diverticulitis with associated al-colonic abscess UTI - Continue with antibiotic therapy as per ID - Clear liquid diet, advance slowly as tolerated - Follow up surgical recommendations - Would consider repeat CT imaging within 5 days to ensure abscess resolution - Patient would require elective follow up colonoscopy within 8 weeks following resolution of acute symptoms, office contact information provided to patient
[2017-01-27 07:07] LABS: ADD MANUAL DIFF? NO
[2017-01-27 07:32] LABS: BASO # 0.03 K/mm3 (0.0-2.0); BASO % 0.3 % (0.0-3.0); EOS # 0.3 (0.0-0.7); EOS % 2.4 % (1.5-5.0); GRAN # 8.72 (1.4-6.5); GRAN % 74.8 % (50.0-68.0); HEMATOCRIT 32.3 % (36.0-48.0); LYMPH # 1.8 (1.2-3.4); MEAN CELL VOLUME 82.6 fL (80.0-105.0); MEAN CORPUSCULAR HEMOGLOBIN 26.6 pg (25.0-35.0); MEAN CORPUSCULAR HGB CONC 32.2 g/dl (31.0-37.0); MEAN PLATELET VOLUME 9.8 fl (7.0-11.0); MONO # 0.9 (0.1-0.6); MONO % 7.5 % (1.0-6.0); PLATELET COUNT 288 10^3/uL (120.0-450.0); RED CELL DISTRIBUTION WIDTH 17.3 % (11.5-14.5); WHITE BLOOD COUNT 11.7 10^3/ul (4.5-11.0)
[2017-01-27 07:35] LABS: ALB/GLOB RATIO 0.9 (1.1-1.8); ALKALINE PHOSPHATASE 75 U/L (38-133); ALT/SGPT 23 U/L (7-56); AST/SGOT 25 U/L (15-39); BILIRUBIN,TOTAL 0.6 mg/dL (0.2-1.3); BLOOD UREA NITROGEN 13 mg/dL (7-21); CALCIUM 8.7 mg/dL (8.4-10.5); CARBON DIOXIDE 30 mmol/L (21-33); CHLORIDE 103 mmol/L (95-110); GFR AFRICAN-AMERICAN > 60; GLUCOSE,RANDOM 76 mg/dL (70-110); SODIUM 142 mmol/L (132-148); TOTAL PROTEIN 6.6 g/dL (5.8-8.3)
[2017-01-27 08:06] LABS: POTASSIUM 2.9 mmol/L (3.6-5.0)
--- NOTE | 2017-01-27 08:25 | CP.PCM.PN ---
Subjective - Date & Time of Evaluation Date of Evaluation: 01/27/17 Time of Evaluation: 08:22 - Subjective Subjective: SURGICAL PROGRESS NOTE FOR DR. BONILLA Pt seen and examined at bedside. No acute events overnight. Continues to have abd pain. Denies having any N/V/D/C, fevers or chills. Objective - Vital Signs/Intake and Output Vital Signs (last 24 hours): Temp Pulse Resp BP Pulse Ox 98.8 F 77 18 112/43 L 99 01/27/17 07:39 01/27/17 07:39 01/27/17 07:39 01/27/17 07:39 01/27/17 07:39 - Medications Medications: Current Medications Atorvastatin Calcium (Lipitor) 10 mg PO DIN [facility] Last Admin: 01/26/17 17:37 Dose: 10 mg Enoxaparin Sodium (Lovenox) 30 mg SC 1000,2200 [facility] PRN Reason: Protocol Last Admin: 01/26/17 22:43 Dose: 30 mg Hydrochlorothiazide (Microzide) 12.5 mg PO DAILY [facility] Last Admin: 01/26/17 09:59 Dose: Not Given Sodium Chloride (Sodium Chloride 0.9%) 1,000 mls @ 100 mls/hr IV .Q10H [facility] Last Admin: 01/25/17 17:41 Dose: 100 mls/hr Ceftriaxone Sodium (Rocephin 1 Gram Ivpb) 100 mls @ 100 mls/hr IVPB DAILY [facility] PRN Reason: Protocol Last Admin: 01/26/17 10:00 Dose: 100 mls/hr Metronidazole (Flagyl) 100 mls @ 100 mls/hr IVPB Q8 [facility] PRN Reason: Protocol Last Admin: 01/27/17 06:35 Dose: 100 mls/hr Losartan Potassium (Cozaar) 100 mg PO DAILY [facility] Last Admin: 01/26/17 09:58 Dose: 100 mg Morphine Sulfate (Morphine) 2 mg IVP Q6H PRN PRN Reason: Pain, moderate (4-7) Last Admin: 01/26/17 23:10 Dose: 2 mg Pantoprazole Sodium (Protonix Inj) 40 mg IVP Q12 [facility] Last Admin: 01/26/17 22:43 Dose: 40 mg Potassium Chloride (Klor-Con 10) 10 meq PO DAILY [facility] Last Admin: 04/06/17 10:10 Dose: Not Given - Labs Labs: 01/27/17 06:30 01/27/17 06:30 PT 11.8 Seconds (9.9-11.8) 01/25/17 12:15 INR 1.09 (0.93-1.08) H 01/25/17 12:15 APTT 31.0 Seconds (23.7-30.8) H 01/25/17 12:15 - Constitutional Appears: Non-toxic, No Acute Distress - Head Exam Head Exam: ATRAUMATIC - ENT Exam ENT Exam: Mucous Membranes Moist - Respiratory Exam Respiratory Exam: absent: Accessory Muscle Use, Respiratory Distress - GI/Abdominal Exam GI & Abdominal Exam: Soft. absent: Distended, Firm, Guarding, Rigid - Extremities Exam Extremities Exam: absent: Pedal Edema, Tenderness - Neurological Exam Neurological Exam: Alert, Awake, Oriented x3 - Psychiatric Exam Psychiatric exam: Normal Affect, Normal Mood - Skin Skin Exam: Dry, Intact, Normal Color, Warm Assessment and Plan - Assessment and Plan (Free Text) Assessment: 71 year old female is here for diverticulitis of sigmoid colon with adjacent diverticular abscess seen on CT. -IV ABX -IVF -NPO -Serial abd exam -Pain control - no surgical intervention at this point Will d/w Dr. Cain Gupta PGY1
[2017-01-27] MEDS: Potassium Chloride 20 mEq 100 ML IVPB SCH ×2 (09:30→14:00)
[2017-01-27] MEDS: Potassium Chloride 10 mEq ER Tab PO SCH (09:57)
[2017-01-27] MEDS: cefTRIAXone 1 gm 100 ML IVPB SCH (09:57)
[2017-01-27] MEDS: Enoxaparin 30 mg Syringe SC SCH ×2 (09:58→21:07)
[2017-01-27] MEDS: Sodium Chloride 0.9% 1,000 ML IV SCH (10:00)
--- NOTE | 2017-01-27 14:58 | CP.PCM.PN ---
<Susi Kaur - Last Filed: 01/27/17 15:08> Subjective - Date & Time of Evaluation Date of Evaluation: 01/27/17 Time of Evaluation: 11:00 - Subjective Subjective: PGY-1 Medicine progress note Patient seen and examined at bedside. No acute distress. Nurse reports no events overnight. Patient states that abdominal pain is 1-2/10 now. Patient states that she wants to eat. She denies fever, chest pain, sob, n/v/d/c, urinary symptoms. Objective - Vital Signs/Intake and Output Vital Signs (last 24 hours): Temp Pulse Resp BP Pulse Ox 98.8 F 77 18 112/43 L 99 01/27/17 07:39 01/27/17 07:39 01/27/17 07:39 01/27/17 07:39 01/27/17 07:39 - Medications Medications: Current Medications Atorvastatin Calcium (Lipitor) 10 mg PO DIN [facility] Last Admin: 01/26/17 17:37 Dose: 10 mg Enoxaparin Sodium (Lovenox) 30 mg SC 1000,2200 [facility] PRN Reason: Protocol Last Admin: 01/27/17 09:58 Dose: 30 mg Hydrochlorothiazide (Microzide) 12.5 mg PO DAILY [facility] Last Admin: 01/27/17 09:58 Dose: Not Given Sodium Chloride (Sodium Chloride 0.9%) 1,000 mls @ 100 mls/hr IV .Q10H [facility] Last Admin: 01/27/17 10:00 Dose: 100 mls/hr Ceftriaxone Sodium (Rocephin 1 Gram Ivpb) 100 mls @ 100 mls/hr IVPB DAILY [facility] PRN Reason: Protocol Last Admin: 01/27/17 09:57 Dose: 100 mls/hr Metronidazole (Flagyl) 100 mls @ 100 mls/hr IVPB Q8 [facility] PRN Reason: Protocol Last Admin: 01/27/17 06:35 Dose: 100 mls/hr Losartan Potassium (Cozaar) 100 mg PO DAILY [facility] Last Admin: 01/27/17 09:58 Dose: 100 mg Morphine Sulfate (Morphine) 2 mg IVP Q6H [facility] PRN Reason: Pain, moderate (4-7) Last Admin: 01/26/17 23:10 Dose: 2 mg Pantoprazole Sodium (Protonix Inj) 40 mg IVP Q12 [facility] Last Admin: 01/27/17 09:58 Dose: 40 mg Potassium Chloride (Klor-Con 10) 10 meq PO DAILY [facility] Last Admin: 01/27/17 09:57 Dose: 10 meq - Labs Labs: 01/27/17 06:30 01/27/17 06:30 PT 11.8 Seconds (9.9-11.8) 01/25/17 12:15 INR 1.09 (0.93-1.08) H 01/25/17 12:15 APTT 31.0 Seconds (23.7-30.8) H 01/25/17 12:15 - Constitutional Appears: Well, No Acute Distress - Head Exam Head Exam: ATRAUMATIC, NORMOCEPHALIC - Eye Exam Eye Exam: Normal appearance - ENT Exam ENT Exam: Mucous Membranes Moist - Respiratory Exam Respiratory Exam: Clear to Ausculation Bilateral, NORMAL BREATHING PATTERN. absent: Decreased Breath Sounds, Rhonchi, Wheezes, Respiratory Distress - Cardiovascular Exam Cardiovascular Exam: REGULAR RHYTHM. absent: Tachycardia, Murmur - GI/Abdominal Exam GI & Abdominal Exam: absent: Distended, Firm, Guarding, Soft, Tenderness, Normal Bowel Sounds - Extremities Exam Extremities Exam: Normal Inspection. absent: Pedal Edema - Neurological Exam Neurological Exam: Alert, Awake, Oriented x3 - Skin Skin Exam: Dry, Intact, Normal Color, Warm Assessment and Plan - Assessment and Plan (Free Text) Assessment: 71 yo female with PMH of HTN, hyperlipidemia, GERD, borderline DM, arthritis, h/ o hypokalemia presented with diverticulitis with abscess, hypokalemia. CT abd showed diverticulitis of sigmoid colon with diverticular abscess 2.5x 3.8 cm. Diverticular abscess was not able to be drained at this time. Plan: 1. diverticulitis and diverticular abscess - CT abd showed diverticulitis of sigmoid colon with diverticular abscess 2.5x 3.8 cm - afebrile with improved leukocytosis - blood and urine cultures pending - received zosyn in ED - continue flagyl and rocephen - advance diet to liquid - cont IVF NS @100 - pain control - c. diff is negative - stool studies order per GI - stool cultures pending - blood cultures negative after 24 hours - GI following, recommend outpatient colonoscopy in 6-8 weeks - Surgery follow, no surgical intervention at this time - IR does not recommended drainage at the current time, repeat CT in 5 days if clinically indicated 2. Hypokalemia - h/o hypokalemia - K this morning 2.9 - patient received K supplement yesterday, however continues to be low - repeat potassium this afternoon - cont to monitor 3. UTI - positive UA - cont flagyl and rocephan - urine cultures ordered 4. HTN - cont home medication benicar - cont to monitor 5. hyperlipidemia - cont home medication simvastatin ppx - DVT ppx lovenox - GI ppx protonix <Gilberto Jacome - Last Filed: 02/24/17 09:41> Objective - Vital Signs/Intake and Output Vital Signs (last 24 hours): Temp Pulse Resp BP Pulse Ox 97.7 F 83 20 117/53 L 98 01/28/17 16:38 01/28/17 16:38 01/28/17 16:38 01/28/17 16:38 01/28/17 16:38 - Labs Labs: 01/28/17 06:47 01/28/17 06:47 PT 11.8 Seconds (9.9-11.8) 01/25/17 12:15 INR 1.09 (0.93-1.08) H 01/25/17 12:15 APTT 31.0 Seconds (23.7-30.8) H 01/25/17 12:15 Attending/Attestation - Attestation I have personally seen and examined this patient.: Yes I have fully participated in the care of the patient.: Yes I have reviewed all pertinent clinical information, including history, physical exam and plan: Yes Notes (Text): 02/24/17 09:41 Medical record note made by the resident after discussion with my direction and input after the patient was personally seen and examined by me. I have reviewed the chart and agree that the record accurately reflects by personal performance of the history, physical exam, data review, and medical decision-making, in the course for the patient. I have also personally directed the plan of care.
[2017-01-27] MEDS ORDERED: Potassium Chloride 20 mEq 100 ML IVPB ONE (15:39)
[2017-01-27 16:32] VITALS: RESP 20
[2017-01-27] MEDS: Morphine 2 mg/ml ISec IVP PRN (22:23)
[2017-01-28] MEDS: metroNIDAZOLE IV 500 mg/100 ml 100 ML IVPB SCH ×2 (05:53→13:20)
[2017-01-28] MEDS: Sodium Chloride 0.9% 1,000 ML IV SCH (05:53)
[2017-01-28 06:49] LABS: ADD MANUAL DIFF? NO
[2017-01-28 07:11] LABS: ALB/GLOB RATIO 0.9 (1.1-1.8); ALKALINE PHOSPHATASE 76 U/L (38-133); ALT/SGPT 23 U/L (7-56); AST/SGOT 24 U/L (15-39); BILIRUBIN,TOTAL 0.7 mg/dL (0.2-1.3); BLOOD UREA NITROGEN 9 mg/dL (7-21); CALCIUM 8.4 mg/dL (8.4-10.5); CARBON DIOXIDE 29 mmol/L (21-33); CHLORIDE 106 mmol/L (98-107); GFR AFRICAN-AMERICAN > 60; GLUCOSE,RANDOM 105 mg/dL (70-110); POTASSIUM 3.1 mmol/L (3.6-5.0); SODIUM 142 mmol/L (132-148)
[2017-01-28 07:20] LABS: BASO # 0.02 K/mm3 (0.0-2.0); BASO % 0.2 % (0.0-3.0); EOS # 0.4 (0.0-0.7); EOS % 3.7 % (1.5-5.0); GRAN # 6.23 (1.4-6.5); GRAN % 66.7 % (50.0-68.0); HEMATOCRIT 33.4 % (36.0-48.0); LYMPH % 21.8 % (22.0-35.0); MEAN CELL VOLUME 82.1 fL (80.0-105.0); MEAN CORPUSCULAR HEMOGLOBIN 26.8 pg (25.0-35.0); MEAN CORPUSCULAR HGB CONC 32.6 g/dl (31.0-37.0); MEAN PLATELET VOLUME 9.7 fl (7.0-11.0); MONO # 0.7 (0.1-0.6); MONO % 7.6 % (1.0-6.0); PLATELET COUNT 356 10^3/uL (120.0-450.0); RED CELL DISTRIBUTION WIDTH 17.2 % (11.5-14.5); WHITE BLOOD COUNT 9.4 10^3/ul (4.5-11.0)
--- NOTE | 2017-01-28 08:17 | CP.PCM.PN ---
<Jose Maria Garcia - Last Filed: 01/28/17 12:27> Subjective - Date & Time of Evaluation Date of Evaluation: 01/28/17 Time of Evaluation: 07:15 - Subjective Subjective: PGY4 GI Fellow Progress Note Patient seen and examined bedside this morning. The patient denies any new complaints. Stool less watery, now soft. Tolerated liquid diet without issue. Does admit to some tenderness in the LLQ of the abdomen. No fever, chills overnight. 12 system ROS performed and negative except where stated. Objective - Vital Signs/Intake and Output Vital Signs (last 24 hours): Temp Pulse Resp BP Pulse Ox 98 F 79 20 116/57 L 95 01/28/17 07:55 01/28/17 07:55 01/28/17 07:55 01/28/17 07:55 01/28/17 07:55 Intake and Output: 01/28/17 01/28/17 06:59 18:59 Intake Total 3000 Balance 3000 - Medications Medications: Current Medications Atorvastatin Calcium (Lipitor) 10 mg PO DIN [facility] Last Admin: 01/27/17 18:03 Dose: 10 mg Enoxaparin Sodium (Lovenox) 30 mg SC 1000,2200 [facility] PRN Reason: Protocol Last Admin: 01/27/17 21:07 Dose: 30 mg Hydrochlorothiazide (Microzide) 12.5 mg PO DAILY [facility] Last Admin: 01/27/17 09:58 Dose: Not Given Sodium Chloride (Sodium Chloride 0.9%) 1,000 mls @ 100 mls/hr IV .Q10H [facility] Last Admin: 01/28/17 05:53 Dose: 100 mls/hr Ceftriaxone Sodium (Rocephin 1 Gram Ivpb) 100 mls @ 100 mls/hr IVPB DAILY [facility] PRN Reason: Protocol Last Admin: 01/27/17 09:57 Dose: 100 mls/hr Metronidazole (Flagyl) 100 mls @ 100 mls/hr IVPB Q8 [facility] PRN Reason: Protocol Last Admin: 01/28/17 05:53 Dose: 100 mls/hr Losartan Potassium (Cozaar) 100 mg PO DAILY [facility] Last Admin: 01/27/17 09:58 Dose: 100 mg Morphine Sulfate (Morphine) 2 mg IVP Q6H [facility] PRN Reason: Pain, moderate (4-7) Last Admin: 01/27/17 22:23 Dose: 2 mg Pantoprazole Sodium (Protonix Inj) 40 mg IVP Q12 [facility] Last Admin: 01/27/17 21:07 Dose: 40 mg Potassium Chloride (Klor-Con 10) 10 meq PO DAILY [facility] Last Admin: 01/27/17 09:57 Dose: 10 meq - Labs Labs: 01/28/17 06:47 01/28/17 06:47 PT 11.8 Seconds (9.9-11.8) 01/25/17 12:15 INR 1.09 (0.93-1.08) H 01/25/17 12:15 APTT 31.0 Seconds (23.7-30.8) H 01/25/17 12:15 - Constitutional Appears: Non-toxic, No Acute Distress, Other (obese) - Eye Exam Eye Exam: EOMI, PERRL - ENT Exam ENT Exam: Mucous Membranes Moist - Respiratory Exam Respiratory Exam: Clear to Ausculation Bilateral. absent: Rales, Rhonchi, Wheezes - Cardiovascular Exam Cardiovascular Exam: RRR, +S1, +S2 - GI/Abdominal Exam GI & Abdominal Exam: Distended (tympanic on percussion), Soft, Tenderness (LLQ) , Normal Bowel Sounds. absent: Firm, Guarding, Rigid, Organomegaly - Extremities Exam Extremities Exam: Normal Inspection. absent: Pedal Edema - Neurological Exam Neurological Exam: Alert, Awake, Oriented x3 - Psychiatric Exam Psychiatric exam: Normal Affect, Normal Mood - Skin Skin Exam: Dry, Warm Assessment and Plan - Assessment and Plan (Free Text) Assessment: Patient is a 71yo female with PMHx significant for HTN, HLD, DM, persistent hypokalemia and OA who presented with abdominal pain. -Acute complicated sigmoid diverticulitis with 2.5x3.8cm abscess Plan: -Abscess too small for IR draining, no plan for general surgical intervention at this juncture -Do not recommend repeat CT scan given clinical improvement -Tolerating clear liquid diet, advanced to full liquids; if tolerating can try soft diet, low fat/fiber for dinner -CD negative -Continue antibiotics as ordered, will need to complete 2 week course of antibiotics -Analgesia per primary service -Will need outpatient follow up in 4 weeks and colonoscopy 6-8wks from resolution -OK to D/C from GI standpoint <Maria A Lambert MD - Last Filed: 01/28/17 20:04> Objective - Vital Signs/Intake and Output Vital Signs (last 24 hours): Temp Pulse Resp BP Pulse Ox 97.7 F 83 20 117/53 L 98 01/28/17 16:38 01/28/17 16:38 01/28/17 16:38 01/28/17 16:38 01/28/17 16:38 Intake and Output: 01/28/17 01/29/17 18:59 06:59 Intake Total 540 Output Total 5 Balance 535 - Labs Labs: 01/28/17 06:47 01/28/17 06:47 PT 11.8 Seconds (9.9-11.8) 01/25/17 12:15 INR 1.09 (0.93-1.08) H 01/25/17 12:15 APTT 31.0 Seconds (23.7-30.8) H 01/25/17 12:15 Attending/Attestation - Attestation I have personally seen and examined this patient.: Yes I have fully participated in the care of the patient.: Yes I have reviewed all pertinent clinical information, including history, physical exam and plan: Yes Notes (Text): 01/28/17 19:59 Patient seen and examined with GI fellow. This is a 71 yr old female with PMHx significant for HTN, HLD, DM, persistent hypokalemia and OA who presented with abdominal pain found to have acute complicated sigmoid diverticulitis with 2.5x3.8cm abscess. Doing well on IV antibiotics. Advance diet and continue antibiotics as po as outpatient if going home to complete 2 week course. Will need outpatient follow up in 4 weeks and colonoscopy 6-8wks from resolution
[2017-01-28] MEDS ORDERED: Potassium Chloride 20 mEq 100 ML IVPB ONE (09:49)
--- NOTE | 2017-01-28 10:00 | CP.PCM.PN ---
<Susi Kaur - Last Filed: 01/28/17 10:04> Subjective - Date & Time of Evaluation Date of Evaluation: 01/28/17 Time of Evaluation: 09:59 - Subjective Subjective: PGY-1 Medicine progress note Patient seen and examined at bedside. No acute distress. Nurse reports no acute events overnight. Patient states she is doing better, her abdominal pain is 1/ 10. She did ask for pain medications overnight for knee pain due to arthritis. She continues to have bowel movements. She denies n/v/d/c, chest pain, fever, sob. Patient states that this morning she was placed on O2 do to decrease saturation, however her SaO2 is 95 in RA. Objective - Vital Signs/Intake and Output Vital Signs (last 24 hours): Temp Pulse Resp BP Pulse Ox 98 F 79 20 116/57 L 95 01/28/17 07:55 01/28/17 07:55 01/28/17 07:55 01/28/17 07:55 01/28/17 07:55 Intake and Output: 01/28/17 01/28/17 06:59 18:59 Intake Total 3000 Balance 3000 - Medications Medications: Current Medications Atorvastatin Calcium (Lipitor) 10 mg PO DIN [facility] Last Admin: 01/27/17 18:03 Dose: 10 mg Enoxaparin Sodium (Lovenox) 30 mg SC 1000,2200 [facility] PRN Reason: Protocol Last Admin: 01/27/17 21:07 Dose: 30 mg Hydrochlorothiazide (Microzide) 12.5 mg PO DAILY [facility] Last Admin: 01/27/17 09:58 Dose: Not Given Ceftriaxone Sodium (Rocephin 1 Gram Ivpb) 100 mls @ 100 mls/hr IVPB DAILY [facility] PRN Reason: Protocol Last Admin: 01/27/17 09:57 Dose: 100 mls/hr Metronidazole (Flagyl) 100 mls @ 100 mls/hr IVPB Q8 [facility] PRN Reason: Protocol Last Admin: 01/28/17 05:53 Dose: 100 mls/hr Potassium Chloride (Potassium Chloride 20 Meq/100 Ml) 100 mls @ 50 mls/hr IVPB ONCE ONE Stop: 01/28/17 11:48 Ibuprofen (Motrin Tab) 400 mg PO Q6H [facility]N PRN Reason: Pain, moderate (4-7) Losartan Potassium (Cozaar) 100 mg PO DAILY [facility] Last Admin: 01/27/17 09:58 Dose: 100 mg Pantoprazole Sodium (Protonix Inj) 40 mg IVP Q12 [facility] Last Admin: 01/27/17 21:07 Dose: 40 mg Potassium Chloride (Klor-Con 10) 10 meq PO DAILY [facility] Last Admin: 01/27/17 09:57 Dose: 10 meq - Labs Labs: 01/28/17 06:47 01/28/17 06:47 PT 11.8 Seconds (9.9-11.8) 01/25/17 12:15 INR 1.09 (0.93-1.08) H 01/25/17 12:15 APTT 31.0 Seconds (23.7-30.8) H 01/25/17 12:15 - Constitutional Appears: Well, No Acute Distress - Head Exam Head Exam: ATRAUMATIC, NORMOCEPHALIC - Eye Exam Eye Exam: EOMI, Normal appearance - ENT Exam ENT Exam: Mucous Membranes Moist - Respiratory Exam Respiratory Exam: Clear to Ausculation Bilateral, NORMAL BREATHING PATTERN. absent: Decreased Breath Sounds, Rales, Rhonchi, Wheezes, Respiratory Distress - Cardiovascular Exam Cardiovascular Exam: REGULAR RHYTHM. absent: Tachycardia, Murmur - GI/Abdominal Exam GI & Abdominal Exam: Soft, Normal Bowel Sounds. absent: Distended, Firm, Guarding, Tenderness - Extremities Exam Extremities Exam: Normal Inspection. absent: Pedal Edema - Neurological Exam Neurological Exam: Alert, Awake, Oriented x3 - Skin Skin Exam: Dry, Intact, Normal Color, Warm Assessment and Plan - Assessment and Plan (Free Text) Assessment: 71 yo female with PMH of HTN, hyperlipidemia, GERD, borderline DM, arthritis, h/ o hypokalemia presented with diverticulitis with abscess, hypokalemia. CT abd showed diverticulitis of sigmoid colon with diverticular abscess 2.5x 3.8 cm. Diverticular abscess was not able to be drained at this time. Leukocytosis has resolved. Plan: 1. diverticulitis and diverticular abscess - CT abd showed diverticulitis of sigmoid colon with diverticular abscess 2.5x 3.8 cm - afebrile, leukocytosis has resolved - blood negative after 48 hours - urine cultures pending - continue flagyl and rocephen - advanced diet to full liquids, if tolerate will advance to soft diet for dinner - stop IVF - pain control changed to motrin - c. diff is negative - stool studies order per GI - stool cultures pending - GI following, recommend outpatient colonoscopy in 6-8 weeks - Surgery follow, no surgical intervention at this time - IR does not recommended drainage at the current time, repeat CT in 5 days if clinically indicated 2. Hypokalemia - h/o hypokalemia - K this morning improved to 3.1 - patient received K supplement yesterday, however continues to be low - will replete - cont to monitor 3. UTI - positive UA - cont flagyl and rocephan - urine cultures ordered 4. HTN - cont home medication benicar - cont to monitor 5. hyperlipidemia - cont home medication simvastatin ppx - DVT ppx lovenox - GI ppx protonix <Gilberto Jacome - Last Filed: 02/24/17 09:55> Objective - Vital Signs/Intake and Output Vital Signs (last 24 hours): Temp Pulse Resp BP Pulse Ox 97.7 F 83 20 117/53 L 98 01/28/17 16:38 01/28/17 16:38 01/28/17 16:38 01/28/17 16:38 01/28/17 16:38 - Labs Labs: 01/28/17 06:47 01/28/17 06:47 PT 11.8 Seconds (9.9-11.8) 01/25/17 12:15 INR 1.09 (0.93-1.08) H 01/25/17 12:15 APTT 31.0 Seconds (23.7-30.8) H 01/25/17 12:15 Attending/Attestation - Attestation I have personally seen and examined this patient.: Yes I have fully participated in the care of the patient.: Yes I have reviewed all pertinent clinical information, including history, physical exam and plan: Yes Notes (Text): 02/24/17 09:55 Medical record note made by the resident after discussion with my direction and input after the patient was personally seen and examined by me. I have reviewed the chart and agree that the record accurately reflects by personal performance of the history, physical exam, data review, and medical decision-making, in the course for the patient. I have also personally directed the plan of care.
[2017-01-28] MEDS: Enoxaparin 30 mg Syringe SC SCH (10:16)
[2017-01-28] MEDS: Potassium Chloride 10 mEq ER Tab PO SCH (10:17)
[2017-01-28] MEDS: cefTRIAXone 1 gm 100 ML IVPB SCH (10:19)
--- NOTE | 2017-01-28 10:55 | CP.PCM.PN ---
Subjective - Date & Time of Evaluation Date of Evaluation: 01/28/17 Time of Evaluation: 10:54 - Subjective Subjective: SURGERY PROGRESS NOTE FOR DR. BONILLA 71F seen and examined at bedside. [place]AL[place]. Patient denies pain/N/V/D/C. tolerating diet. Objective - Vital Signs/Intake and Output Vital Signs (last 24 hours): Temp Pulse Resp BP Pulse Ox 98 F 79 20 116/57 L 95 01/28/17 07:55 01/28/17 07:55 01/28/17 07:55 01/28/17 07:55 01/28/17 07:55 Intake and Output: 01/28/17 01/28/17 06:59 18:59 Intake Total 3000 Balance 3000 - Medications Medications: Current Medications Atorvastatin Calcium (Lipitor) 10 mg PO DIN [facility] Last Admin: 01/27/17 18:03 Dose: 10 mg Enoxaparin Sodium (Lovenox) 30 mg SC 1000,2200 [facility] PRN Reason: Protocol Last Admin: 01/28/17 10:16 Dose: 30 mg Hydrochlorothiazide (Microzide) 12.5 mg PO DAILY [facility] Last Admin: 01/28/17 10:18 Dose: 12.5 mg Ceftriaxone Sodium (Rocephin 1 Gram Ivpb) 100 mls @ 100 mls/hr IVPB DAILY [facility] PRN Reason: Protocol Last Admin: 01/28/17 10:19 Dose: 100 mls/hr Metronidazole (Flagyl) 100 mls @ 100 mls/hr IVPB Q8 [facility] PRN Reason: Protocol Last Admin: 01/28/17 05:53 Dose: 100 mls/hr Potassium Chloride (Potassium Chloride 20 Meq/100 Ml) 100 mls @ 50 mls/hr IVPB ONCE ONE Stop: 01/28/17 11:48 Last Admin: 01/28/17 10:18 Dose: 50 mls/hr Ibuprofen (Motrin Tab) 400 mg PO Q6H PRN PRN Reason: Pain, moderate (4-7) Losartan Potassium (Cozaar) 100 mg PO DAILY [facility] Last Admin: 01/28/17 10:17 Dose: 100 mg Pantoprazole Sodium (Protonix Inj) 40 mg IVP Q12 [facility] Last Admin: 01/28/17 10:17 Dose: 40 mg Potassium Chloride (Klor-Con 10) 10 meq PO DAILY [facility] Last Admin: 01/28/17 10:17 Dose: 10 meq - Labs Labs: 01/28/17 06:47 01/28/17 06:47 PT 11.8 Seconds (9.9-11.8) 01/25/17 12:15 INR 1.09 (0.93-1.08) H 01/25/17 12:15 APTT 31.0 Seconds (23.7-30.8) H 01/25/17 12:15 - Constitutional Appears: Non-toxic, No Acute Distress - Head Exam Head Exam: ATRAUMATIC - Respiratory Exam Respiratory Exam: Clear to Ausculation Bilateral, NORMAL BREATHING PATTERN - Cardiovascular Exam Cardiovascular Exam: REGULAR RHYTHM, +S1, +S2 - GI/Abdominal Exam GI & Abdominal Exam: Soft. absent: Distended, Firm, Guarding, Rigid, Tenderness , Rebound - Skin Skin Exam: Dry, Intact, Normal Color, Warm Assessment and Plan - Assessment and Plan (Free Text) Assessment: 71 year old female is here for diverticulitis of sigmoid colon with adjacent diverticular abscess seen on CT. - no drainable abscess as per IR - No surgical intervention at this time - continue abx Further recs discuss with Dr. Cain Null, PGY1
[2017-01-28 16:39] VITALS: BP 117/53; PULSE 83; TEMP 97.7; O2SAT 98
--- NOTE | 2017-01-30 13:59 | CP.PCM.DIS ---
<Susi Kaur - Last Filed: 02/15/17 14:46> Provider - Provider Date of Admission: 01/25/17 14:58 Attending physician: Emil Tran MD Primary care physician: Emil Tran MD Time Spent in preparation of Discharge (in minutes): 45 Hospital Course - Lab Results Lab Results: Micro Results 01/25/17 23:45 Blood-Venous Blood Culture - Preliminary NO GROWTH AFTER 4 DAYS 01/25/17 23:30 Blood-Venous Blood Culture - Preliminary NO GROWTH AFTER 4 DAYS 01/28/17 06:50 Urine,Clean Catch Urine Culture - Final Gram Positive Cocci 01/27/17 09:15 Stool Stool Culture - Final NO SALMONELLA, SHIGELLA OR CAMPYLOBACTER ISOLATED. 01/27/17 09:15 Stool C. difficile Antigen & Toxin A,B (M - Final Most Recent Lab Values WBC 9.4 10^3/ul (4.5-11.0) 01/28/17 06:47 RBC 4.07 10^6/uL (3.5-6.1) 01/28/17 06:47 Hgb 10.9 gm/dL (12.0-16.0) L 01/28/17 06:47 Hct 33.4 % (36.0-48.0) L 01/28/17 06:47 MCV 82.1 fL (80.0-105.0) 01/28/17 06:47 MCH 26.8 pg (25.0-35.0) 01/28/17 06:47 MCHC 32.6 g/dl (31.0-37.0) 01/28/17 06:47 RDW 17.2 % (11.5-14.5) H 01/28/17 06:47 Plt Count 356 10^3/uL (120.0-450.0) 01/28/17 06:47 MPV 9.7 fl (7.0-11.0) 01/28/17 06:47 Gran % 66.7 % (50.0-68.0) 01/28/17 06:47 Lymph % (Auto) 21.8 % (22.0-35.0) L 01/28/17 06:47 Bonner % (Auto) 7.6 % (1.0-6.0) H 01/28/17 06:47 Eos % (Auto) 3.7 % (1.5-5.0) 01/28/17 06:47 Baso % (Auto) 0.2 % (0.0-3.0) 01/28/17 06:47 Gran # 6.23 (1.4-6.5) 01/28/17 06:47 Lymph # 2.0 (1.2-3.4) 01/28/17 06:47 Bonner # 0.7 (0.1-0.6) H 01/28/17 06:47 Eos # 0.4 (0.0-0.7) 01/28/17 06:47 Baso # 0.02 K/mm3 (0.0-2.0) 01/28/17 06:47 PT 11.8 Seconds (9.9-11.8) 01/25/17 12:15 INR 1.09 (0.93-1.08) H 01/25/17 12:15 APTT 31.0 Seconds (23.7-30.8) H 01/25/17 12:15 Sodium 142 mmol/L (132-148) 01/28/17 06:47 Potassium 3.1 mmol/L (3.6-5.0) L 01/28/17 06:47 Chloride 106 mmol/L (98-107) 01/28/17 06:47 Carbon Dioxide 29 mmol/L (21-33) 01/28/17 06:47 Anion Gap 10 (10-20) 01/28/17 06:47 BUN 9 mg/dL (7-21) 01/28/17 06:47 Creatinine 0.8 mg/dL (0.5-1.4) 01/28/17 06:47 Est GFR ( Amer) > 60 01/28/17 06:47 Est GFR (Non-Af Amer) > 60 01/28/17 06:47 Random Glucose 105 mg/dL (70-110) 01/28/17 06:47 Calcium 8.4 mg/dL (8.4-10.5) 01/28/17 06:47 Magnesium 2.3 mg/dL (1.7-2.2) H 01/26/17 08:00 Total Bilirubin 0.7 mg/dL (0.2-1.3) 01/28/17 06:47 AST 24 U/L (15-39) 01/28/17 06:47 ALT 23 U/L (7-56) 01/28/17 06:47 Alkaline Phosphatase 76 U/L (38-133) 01/28/17 06:47 Lactate Dehydrogenase 486 U/L (333-699) 01/25/17 12:15 Total Creatine Kinase 26 U/L (35-230) L 01/25/17 12:15 Troponin I 0.02 ng/mL 01/25/17 12:15 Total Protein 7.0 g/dL (5.8-8.3) 01/28/17 06:47 Albumin 3.3 g/dL (3.0-4.8) 01/28/17 06:47 Globulin 3.8 gm/dL 01/28/17 06:47 Albumin/Globulin Ratio 0.9 (1.1-1.8) L 01/28/17 06:47 Amylase 89 U/L (35-125) 01/25/17 12:15 Lipase 15 U/L (23-300) L 01/25/17 12:15 Procalcitonin 0.08 NG/ML (0.19-0.49) L 01/26/17 07:30 Urine Color Yellow (YELLOW) 01/25/17 13:40 Urine Appearance Sl cloudy (CLEAR) 01/25/17 13:40 Urine pH 6.5 (4.7-8.0) 01/25/17 13:40 Ur Specific [place] 1.015 (1.005-1.035) 01/25/17 13:40 Urine Protein 30 mg/dL (<30 mg/dL) H 01/25/17 13:40 Urine Glucose (UA) Negative mg/dL (NEGATIVE) 01/25/17 13:40 Urine Ketones Negative mg/dL (NEGATIVE) 01/25/17 13:40 Urine Blood Moderate (NEGATIVE) H 01/25/17 13:40 Urine Nitrate Negative (NEGATIVE) 01/25/17 13:40 Urine Bilirubin Negative (NEGATIVE) 01/25/17 13:40 Urine Urobilinogen 0.2 E.U./dL (<1 E.U./dL) 01/25/17 13:40 Ur Leukocyte Esterase Large Eulalio/uL (NEGATIVE) H 01/25/17 13:40 Urine RBC 1 - 3 /hpf (0-2) 01/25/17 13:40 Urine WBC Tntc /hpf (0-6) 01/25/17 13:40 Urine Bacteria Few (NEG) 01/25/17 13:40 Stool Leukocytes, Qual Positive (NEGATIVE) H 01/27/17 09:15 - Hospital Course Hospital Course: 71 yo female with PMH of HTN, hyperlipidemia, GERD, borderline DM, arthritis, h/ o hypokalemia presented with diverticulitis with abscess, hypokalemia. CT abd showed diverticulitis of sigmoid colon with diverticular abscess 2.5x 3.8 cm. IR was consulted, diverticular abscess was not able to be drained. Patient was afebrile with leukocytosis, procalcitonin was low. She was started on antibiotics and IVF. Blood negative after 48 hours. Patient's diet was advanced and was tolerated. Patient was given medications for pain control. Stool c. diff was negative. GI following, recommend outpatient colonoscopy in 6-8 weeks. Surgery was consult, no surgical intervention indicated. Patient was clinically improved, CT was not repeated. Patient had hypokalemia, was supplemented throughout her admission. Patients UA was positive, she was given antibiotics. Patient doing better, diet was advanced, tolerated diet. Discharge instructions is to follow up with PMD in 1 week, follow up with [facility] in 3 weeks. Patient will need outpatient colonoscopy in 6-8 weeks. New medications for metronidazole and ciprofoxacin for 7 days, no strenuous exercise while taking medication. Discharge diagnoses are diverticulitis, diverticular abscess , hypokalemia, UTI. Patient is aware of hospital course and diagnoses. Discharge plan was discussed with patient, she is in agreement. Discharge Exam - Head Exam Head Exam: ATRAUMATIC - Eye Exam Eye Exam: EOMI, Normal appearance - ENT Exam ENT Exam: Mucous Membranes Moist - Respiratory Exam Respiratory Exam: Clear to PA & Lateral, NORMAL BREATHING PATTERN, UNREMARKABLE. absent: Decreased Breath Sounds, Rales, Rhonchi, Wheezes, Respiratory Distress - Cardiovascular Exam Cardiovascular Exam: REGULAR RHYTHM. absent: Tachycardia, Systolic Murmur - GI/Abdominal Exam GI & Abdominal Exam: Normal Bowel Sounds, Soft, Unremarkable. absent: Distended , Firm, Guarding, Tenderness - Neurological Exam Neurological exam: Alert, Oriented x3 - Skin Skin Exam: Dry, Intact, Normal Color, Warm Discharge Plan - Discharge Medications Prescriptions: Ciprofloxacin [Cipro] 500 mg PO Q12 #14 tab metroNIDAZOLE [Flagyl] 500 mg PO Q8 #21 tab - Follow Up Plan Condition: FAIR Disposition: HOME/ ROUTINE Instructions: Diverticulitis (DC), Urinary Tract Infection in Women (DC), Hypokalemia (DC) Additional Instructions: You are being discharged to home. Discharge instructions: - follow up with PMD in 1 week - follow up with [facility] in 3 weeks - Recommend outpatient colonoscopy in 6-8 weeks New medications: Metronidazole 500mg PO every 8 hours for 7 days Ciprofoxacin 500mg PO every 12 hours for 7 days, no strenuous exercise while taking medication. Discharge diagnoses: diverticulitis diverticular abscess hypokalemia UTI If symptoms worsen, please return to the Emergency Room. Referrals: Emil Tran MD [Primary Care Provider] - Follow up with primary Mariah Sam MD [Staff Provider] - 3 Week (Diverticulitis) <Gilberto Jacome - Last Filed: 02/24/17 09:20> Provider - Provider Date of Admission: 01/25/17 14:58 Attending physician: Emil Tran MD Primary care physician: Emil Tran MD Hospital Course - Lab Results Lab Results: Micro Results 01/25/17 23:45 Blood-Venous Blood Culture - Final NO GROWTH AFTER 5 DAYS 01/25/17 23:45 Blood-Venous Gram Stain - Final TEST NOT PERFORMED 01/25/17 23:30 Blood-Venous Blood Culture - Final NO GROWTH AFTER 5 DAYS 01/25/17 23:30 Blood-Venous Gram Stain - Final TEST NOT PERFORMED 01/28/17 06:50 Urine,Clean Catch Urine Culture - Final Gram Positive Cocci 01/27/17 09:15 Stool Stool Culture - Final NO SALMONELLA, SHIGELLA OR CAMPYLOBACTER ISOLATED. 01/27/17 09:15 Stool C. difficile Antigen & Toxin A,B (M - Final Most Recent Lab Values WBC 9.4 10^3/ul (4.5-11.0) 01/28/17 06:47 RBC 4.07 10^6/uL (3.5-6.1) 01/28/17 06:47 Hgb 10.9 gm/dL (12.0-16.0) L 01/28/17 06:47 Hct 33.4 % (36.0-48.0) L 01/28/17 06:47 MCV 82.1 fL (80.0-105.0) 01/28/17 06:47 MCH 26.8 pg (25.0-35.0) 01/28/17 06:47 MCHC 32.6 g/dl (31.0-37.0) 01/28/17 06:47 RDW 17.2 % (11.5-14.5) H 01/28/17 06:47 Plt Count 356 10^3/uL (120.0-450.0) 01/28/17 06:47 MPV 9.7 fl (7.0-11.0) 01/28/17 06:47 Gran % 66.7 % (50.0-68.0) 01/28/17 06:47 Lymph % (Auto) 21.8 % (22.0-35.0) L 01/28/17 06:47 Bonner % (Auto) 7.6 % (1.0-6.0) H 01/28/17 06:47 Eos % (Auto) 3.7 % (1.5-5.0) 01/28/17 06:47 Baso % (Auto) 0.2 % (0.0-3.0) 01/28/17 06:47 Gran # 6.23 (1.4-6.5) 01/28/17 06:47 Lymph # 2.0 (1.2-3.4) 01/28/17 06:47 Bonner # 0.7 (0.1-0.6) H 01/28/17 06:47 Eos # 0.4 (0.0-0.7) 01/28/17 06:47 Baso # 0.02 K/mm3 (0.0-2.0) 01/28/17 06:47 PT 11.8 Seconds (9.9-11.8) 01/25/17 12:15 INR 1.09 (0.93-1.08) H 01/25/17 12:15 APTT 31.0 Seconds (23.7-30.8) H 01/25/17 12:15 Sodium 142 mmol/L (132-148) 01/28/17 06:47 Potassium 3.1 mmol/L (3.6-5.0) L 01/28/17 06:47 Chloride 106 mmol/L (98-107) 01/28/17 06:47 Carbon Dioxide 29 mmol/L (21-33) 01/28/17 06:47 Anion Gap 10 (10-20) 01/28/17 06:47 BUN 9 mg/dL (7-21) 01/28/17 06:47 Creatinine 0.8 mg/dL (0.5-1.4) 01/28/17 06:47 Est GFR ( Amer) > 60 01/28/17 06:47 Est GFR (Non-Af Amer) > 60 01/28/17 06:47 Random Glucose 105 mg/dL (70-110) 01/28/17 06:47 Calcium 8.4 mg/dL (8.4-10.5) 01/28/17 06:47 Magnesium 2.3 mg/dL (1.7-2.2) H 01/26/17 08:00 Total Bilirubin 0.7 mg/dL (0.2-1.3) 01/28/17 06:47 AST 24 U/L (15-39) 01/28/17 06:47 ALT 23 U/L (7-56) 01/28/17 06:47 Alkaline Phosphatase 76 U/L (38-133) 01/28/17 06:47 Lactate Dehydrogenase 486 U/L (333-699) 01/25/17 12:15 Total Creatine Kinase 26 U/L (35-230) L 01/25/17 12:15 Troponin I 0.02 ng/mL 01/25/17 12:15 Total Protein 7.0 g/dL (5.8-8.3) 01/28/17 06:47 Albumin 3.3 g/dL (3.0-4.8) 01/28/17 06:47 Globulin 3.8 gm/dL 01/28/17 06:47 Albumin/Globulin Ratio 0.9 (1.1-1.8) L 01/28/17 06:47 Amylase 89 U/L (35-125) 01/25/17 12:15 Lipase 15 U/L (23-300) L 01/25/17 12:15 Procalcitonin 0.08 NG/ML (0.19-0.49) L 01/26/17 07:30 Urine Color Yellow (YELLOW) 01/25/17 13:40 Urine Appearance Sl cloudy (CLEAR) 01/25/17 13:40 Urine pH 6.5 (4.7-8.0) 01/25/17 13:40 Ur Specific [place] 1.015 (1.005-1.035) 01/25/17 13:40 Urine Protein 30 mg/dL (<30 mg/dL) H 01/25/17 13:40 Urine Glucose (UA) Negative mg/dL (NEGATIVE) 01/25/17 13:40 Urine Ketones Negative mg/dL (NEGATIVE) 01/25/17 13:40 Urine Blood Moderate (NEGATIVE) H 01/25/17 13:40 Urine Nitrate Negative (NEGATIVE) 01/25/17 13:40 Urine Bilirubin Negative (NEGATIVE) 01/25/17 13:40 Urine Urobilinogen 0.2 E.U./dL (<1 E.U./dL) 01/25/17 13:40 Ur Leukocyte Esterase Large Eulalio/uL (NEGATIVE) H 01/25/17 13:40 Urine RBC 1 - 3 /hpf (0-2) 01/25/17 13:40 Urine WBC Tntc /hpf (0-6) 01/25/17 13:40 Urine Bacteria Few (NEG) 01/25/17 13:40 Stool Leukocytes, Qual Positive (NEGATIVE) H 01/27/17 09:15 Attending/Attestation - Attestation I have personally seen and examined this patient.: Yes I have fully participated in the care of the patient.: Yes I have reviewed all pertinent clinical information, including history, physical exam and plan: Yes Notes (Text): 02/24/17 09:20 Medical record note made by the resident after discussion with my direction and input after the patient was personally seen and examined by me. I have reviewed the chart and agree that the record accurately reflects by personal performance of the history, physical exam, data review, and medical decision-making, in the course for the patient. I have also personally directed the plan of care.
== END 2017-01-28 18:56 | disposition home or self-care (01) | DRG 392 ==
LOC: ED 11:08 → EROBSV 11:46 → OBSVTOIN 14:58 → ERH 14:58 → 5RNO 17:51
PROVIDERS: ADMIT Internal Medicine; ATTEND Internal Medicine
DX: K57.20 Diverticulitis of large intestine with perforation and abscess without bleeding (principal); I10 Essential (primary) hypertension; N39.0 Urinary tract infection, site not specified; E78.00 Pure hypercholesterolemia, unspecified; E78.5 Hyperlipidemia, unspecified; E87.6 Hypokalemia; K21.9 Gastro-esophageal reflux disease without esophagitis; Z79.899 Other long term (current) drug therapy; Z87.891 Personal history of nicotine dependence; M17.0 Bilateral primary osteoarthritis of knee; R73.03 Prediabetes

== ENCOUNTER 2017-03-24 06:26 | Day surgery (SDC) | payer MEDICARE ==
[2017-03-17 09:14] VITALS: BMI 42.7
[2017-03-24] MEDS ORDERED: Propofol 10 mg/ml Inj (20 ML) ONE (07:51)
[2017-03-24] MEDS ORDERED: Lidocaine 1% Inj (20ml) ONE (07:51)
[2017-03-24] MEDS ORDERED: Lactated Ringer's 1,000 ML IV SCH (08:50)
[2017-03-24 09:22] VITALS: O2SAT 97
[2017-03-24 09:42] VITALS: BP 126/65; PULSE 66; RESP 16; TEMP 97.5
== END 2017-03-24 10:13 | disposition home or self-care (01) ==
LOC: ENDO 06:26
PROVIDERS: ATTEND Internal Medicine Gastroenterology
DX: K57.92 Diverticulitis of intestine, part unspecified, without perforation or abscess without bleeding (principal); D12.0 Benign neoplasm of cecum; D12.2 Benign neoplasm of ascending colon; D12.3 Benign neoplasm of transverse colon; K57.30 Diverticulosis of large intestine without perforation or abscess without bleeding
CPT/HCPCS: 45380; 88305; J2704; J3010; J7040; J7120

== ENCOUNTER 2018-03-19 11:12 | Emergency (ER) | payer MEDICARE ==
[2018-03-19 11:12] VITALS: BMI 42.7
[2018-03-19 11:30] VITALS: TEMP 97.9
[2018-03-19] MEDS ORDERED: Oxycodone/Acetaminophen 5/325 mg Tab PO STA (11:51)
[2018-03-19] MEDS ORDERED: MethylPREDNISolone Depo 80 mg/ml (5 ml) Inj IM ONE (11:53)
[2018-03-19 11:54] VITALS: RESP 18; O2SAT 95
--- NOTE | 2018-03-19 12:05 | ED PDOC ---
Arrival/HPI - General Chief Complaint: Back Pain Time Seen by Provider: 03/19/18 11:46 Historian: Patient - History of Present Illness Narrative History of Present Illness (Text): 03/19/18 12:00 72 year old female, with no significant past medical history, presents to the emergency department complaining of left sided pain after eating cabbage yesterday. Patient notes lower back pain that radiates to down the left leg, that intensifies with with certain motions such as sitting down and standing up. Patient notes vaginal bleeding. Patient had tests done with PMD last week and will have a procedure done later on this week. Patient denies any fever, chills, chest pain, shortness of breath, nausea, vomiting, diarrhea, neck pain, headache, dizziness, or any other complaints. Time/Duration: 24 hours Symptom Onset: Sudden Symptom Course: Unchanged Activities at Onset: Light Context: Home Past Medical History - Provider Review Nursing Documentation Reviewed: Yes - Infectious Disease Hx of Infectious Diseases: None - Cardiac Hx Cardiac Disorders: Yes Hx Hypertension: Yes - Pulmonary Hx Respiratory Disorders: Yes (SMOKED PPD QUIT 50 YRS AGO) - Neurological Hx Neurological Disorder: No - HEENT Hx HEENT Disorder: No - Renal Hx Renal Disorder: No - Endocrine/Metabolic Hx Endocrine Disorders: No - Hematological/Oncological Hx Blood Transfusions: No - Integumentary Hx Dermatological Disorder: No - Musculoskeletal/Rheumatological Hx Musculoskeletal Disorders: No - Gastrointestinal Hx Gastrointestinal Disorders: Yes Hx Diverticulitis: Yes Hx Gastroesophageal Reflux: Yes Other/Comment: DIVERTICULITIS WITH DIVERTICULAR ABSCESS OF SIBMOID COLON 01-25-17 - Genitourinary/Gynecological Hx Genitourinary Disorders: No - Psychiatric Hx Psychophysiologic Disorder: No Hx Substance Use: No - Surgical History Other/Comment: D AND C - Anesthesia Hx Anesthesia Reactions: No Hx Malignant Hyperthermia: No - Suicidal Assessment Feels Threatened In Home Enviroment: No Family/Social History - Physician Review Nursing Documentation Reviewed: Yes Family/Social History: Unknown Family HX Smoking Status: Never Smoked Hx Alcohol Use: No Hx Substance Use: No Allergies/Home Meds Allergies/Adverse Reactions: Allergies carrot Allergy (Verified 03/19/18 11:24) ITCHING strawberry Allergy (Verified 03/19/18 11:24) ITCHING Home Medications: Home Meds Medication Instructions Recorded Confirmed Olmesartan/Hydrochlorothiazide 1 tab PO DAILY 01/25/17 03/19/18 [Benicar Hct 40-12.5 mg Tablet] Omeprazole 20 mg PO BID 01/25/17 03/19/18 Potassium Chloride [Klor-Con 10] 10 meq PO DAILY 01/25/17 03/19/18 Simvastatin [Zocor] 20 mg PO DAILY 01/25/17 03/19/18 Cholecalciferol [Vitamin D] 2,000 iu PO DAILY 03/17/17 03/19/18 Review of Systems - Physician Review All systems were reviewed & negative as marked: Yes - Review of Systems Constitutional: Normal Eyes: Normal ENT: Normal Respiratory: Normal. absent: SOB, Cough Cardiovascular: Normal. absent: Chest Pain Gastrointestinal: Normal. absent: Abdominal Pain Genitourinary Female: Vaginal Bleeding. absent: Dysuria, Frequency, Hematuria, Urine Output Changes Musculoskeletal: Normal. absent: Back Pain, Neck Pain Skin: Normal. absent: Rash Neurological: Normal. absent: Headache, Dizziness Endocrine: Normal Hemo/Lymphatic: Normal Psychiatric: Normal Physical Exam Vital Signs Reviewed: Yes Vital Signs Temp Pulse Resp BP Pulse Ox 03/19/18 11:50 97.9 F 78 18 132/80 95 03/19/18 11:26 97.9 F 78 16 132/80 94 L Temperature: Afebrile Blood Pressure: Normal Pulse: Regular Respiratory Rate: Normal Appearance: Positive for: Well-Appearing, Non-Toxic, Comfortable Pain Distress: None Mental Status: Positive for: Alert and Oriented X 3 - Systems Exam Head: Present: Atraumatic, Normocephalic Pupils: Present: PERRL Extroacular Muscles: Present: EOMI Conjunctiva: Present: Normal Mouth: Present: Moist Mucous Membranes Neck: Present: Normal Range of Motion Respiratory/Chest: Present: Clear to Auscultation, Good Air Exchange. No: Respiratory Distress, Accessory Muscle Use Cardiovascular: Present: Regular Rate and Rhythm, Normal S1, S2. No: Murmurs Abdomen: No: Tenderness, Distention, Peritoneal Signs Back: Present: Paraspinal Tenderness (lumbar paraspinal tenderness), Other ( left sciatic notch tenderness) Upper Extremity: Present: Normal Inspection. No: Cyanosis, Edema Lower Extremity: Present: Normal Inspection. No: Edema, CALF TENDERNESS Neurological: Present: GCS=15, CN II-XII Intact, Speech Normal Skin: Present: Warm, Dry, Normal Color. No: Rashes Psychiatric: Present: Alert, Oriented x 3, Normal Insight, Normal Concentration Medical Decision Making ED Course and Treatment: 03/19/18 12:09 Impression: 72 year old female who presents to the emergency department complaining of left sided pain since yesterday. Plan: -- flexeril -- motrin -- DEPO-Medrol -- Zofran -- Percocet -- Xray Abdomen -- Lumbar Spine Xray -- Reassess and disposition Progress Notes: 03/19/18 13:08 Xray Abdomen reviewed, shows: BOWEL: No evidence of acute mechanical bowel obstruction. Stool and air seen throughout the large bowel. No evidence free intraperitoneal air seen under the diaphragmatic surfaces. BONES: Moderate to fairly significant levoscoliosis centered at the L2-L3 level seen on erect view OTHER FINDINGS: Re- demonstrated are multiple calcified uterine fibroids. . Please refer to prior CT scan abdomen pelvis dated 01/25/2018 which shows these findings to better advantage. IMPRESSION: No evidence of acute mechanical bowel obstruction. Enlarged uterus with multiple calcified fibroids. 03/19/18 13:15 Xray Lumbar Spine reviewed, shows: BONES: No acute compression fractures no retropulsed fragments. Minor chronic anterior stature loss of the T12 segment. There is a levoscoliosis centered at approximately L2-L3 level DISC SPACES: Multilevel degenerative spondylosis. . Changes include varying degrees of disc space narrowing, endplate eburnation as well as anterolateral and smaller posterior osteophyte formation. Vacuum phenomena noted at the L3-L4 and L4-L5 levels. Facet joints are hypertrophic L5-S1 through the L2-L3 levels in somewhat decreasing order of severity. OTHER FINDINGS: Enlarged uterus containing multiple calcified fibroids again noted IMPRESSION: No acute fractures. Multilevel degenerative spondylosis most notably at affecting the L for L5 and L3-L4 levels with mild levoscoliosis as above. Enlarged uterus containing multiple calcified fibroids. - RAD Interpretation Radiology Orders: 03/19/18 11:54 ABD 2 VIEWS (FLAT/UP OR DECUB) [RAD] Stat LS SPINE AP/LAT [RAD] Stat - Medication Orders Current Medication Orders: Discontinued Medications Cyclobenzaprine HCl (Flexeril) 5 mg PO STAT STA Stop: 03/19/18 11:52 Last Admin: 03/19/18 12:17 Dose: 5 mg Ibuprofen (Motrin Tab) 800 mg PO STAT STA Stop: 03/19/18 11:52 Last Admin: 03/19/18 12:17 Dose: 800 mg MAR Pain/Vitals Document 03/19/18 12:17 SF (Rec: 03/19/18 12:17 [id number] Pain Reassessment Is This A Pain ReAssessment? Yes Sleep Is patient sleeping during reassessment? No Presence of Pain Presence of Pain Yes Methylprednisolone Acetate (Depo-Medrol) 80 mg IM ONCE ONE Stop: 03/19/18 12:31 Ondansetron HCl (Zofran Odt) 8 mg PO STAT STA Stop: 03/19/18 11:54 Last Admin: 03/19/18 12:18 Dose: 8 mg Oxycodone/Acetaminophen (Percocet 5/325 Mg Tab) 1 tab PO STAT STA Stop: 03/19/18 11:52 Last Admin: 03/19/18 12:17 Dose: 1 tab MAR Pain Assessment Document 03/19/18 12:17 SF (Rec: 03/19/18 12:17 [id number] Pain Reassessment Is this a pain reassessment? Yes Sleep Is patient sleeping during reassessment? No Presence of Pain Presence of Pain Yes - Scribe Statement The provider has reviewed the documentation as recorded by the Scribemmie Martin All medical record entries made by the Scribe were at my direction and personally dictated by me. I have reviewed the chart and agree that the record accurately reflects my personal performance of the history, physical exam, medical decision making, and the department course for this patient. I have also personally directed, reviewed, and agree with the discharge instructions and disposition. Disposition/Present on Arrival - Present on Arrival Any Indicators Present on Arrival: No History of DVT/PE: No History of Uncontrolled Diabetes: No Urinary Catheter: No History of Decub. Ulcer: No History Surgical Site Infection Following: None - Disposition Have Diagnosis and Disposition been Completed?: Yes Diagnosis: Sciatica Disposition: HOME/ ROUTINE Disposition Time: 13:20 Patient Plan: Discharge Condition: GOOD Discharge Instructions (ExitCare): Sciatica (DC) Additional Instructions: Mrs Bernard - This is sciatica. Motrin is for pain and inflammation and should be taken with food. Zanaflex is a muscle relaxant, that wont make your sleepy/drowsey. Follow up with your doctors, Return to us if worse or problems. Best- Dr. Adan Saxena Referrals: Emil Tran MD [Primary Care Provider] - Follow up with primary Forms: [employer] ([place])
[2018-03-19] MEDS ORDERED: MethylPREDNISolone Depo 40 mg/ml Inj IM ONE (12:30)
--- NOTE | 2018-03-19 13:05 | RAD ---
HISTORY: Patient feels she has gas COMPARISON: No prior. FINDINGS: BOWEL: No evidence of acute mechanical bowel obstruction. Stool and air seen throughout the large bowel. No evidence free intraperitoneal air seen under the diaphragmatic surfaces. BONES: Moderate to fairly significant levoscoliosis centered at the L2-L3 level seen on erect view OTHER FINDINGS: Re- demonstrated are multiple calcified uterine fibroids. . Please refer to prior CT scan abdomen pelvis dated 01/25/2018 which shows these findings to better advantage. IMPRESSION: No evidence of acute mechanical bowel obstruction. Enlarged uterus with multiple calcified fibroids.
--- NOTE | 2018-03-19 13:10 | RAD ---
PROCEDURE: Radiographs of the Lumbar Spine. HISTORY: Lumbar radiculopathy COMPARISON: Comparison made with CT scan abdomen and pelvis dated 01/25/2017 which image the lumbar spine in three planes. . FINDINGS: BONES: No acute compression fractures no retropulsed fragments. Minor chronic anterior stature loss of the T12 segment. There is a levoscoliosis centered at approximately L2-L3 level DISC SPACES: Multilevel degenerative spondylosis. . Changes include varying degrees of disc space narrowing, endplate eburnation as well as anterolateral and smaller posterior osteophyte formation. Vacuum phenomena noted at the L3-L4 and L4-L5 levels. Facet joints are hypertrophic L5-S1 through the L2-L3 levels in somewhat decreasing order of severity. OTHER FINDINGS: Enlarged uterus containing multiple calcified fibroids again noted IMPRESSION: No acute fractures. Multilevel degenerative spondylosis most notably at affecting the L for L5 and L3-L4 levels with mild levoscoliosis as above. Enlarged uterus containing multiple calcified fibroids.
[2018-03-19 13:22] VITALS: BP 128/76; PULSE 75
== END 2018-03-19 13:31 | disposition home or self-care (01) ==
LOC: ED 11:12
DX: M54.30 Sciatica, unspecified side (principal); I10 Essential (primary) hypertension
CPT/HCPCS: 72100; 74019; 96372; 99283; J1030

== ENCOUNTER 2018-11-03 10:33 | Outpatient (CLI) | payer MEDICARE | END 2018-11-03 10:34 | disposition home or self-care (01) | LOC: RAD 10:33 | DX: Z01.818 Encounter for other preprocedural examination (principal) ==